=== PATIENT | female | born 1990 | race Caucasian/White ===

== ENCOUNTER → 2018-10-25 08:08 | Outpatient (CLI) | payer BC, SELFPAY | PROVIDERS: Visit Provider Nurse Practitioner Obstetrics & Gynecology | DX: Z34.90 Encounter for supervision of normal pregnancy, unspecified, unspecified trimester (principal) | CPT/HCPCS: 87086; 87186 ==

== ENCOUNTER → 2018-11-01 13:28 | Outpatient (CLI) | payer BC, SELFPAY ==
--- NOTE | 2018-11-01 13:45 | US_ITS ---
US OB transvaginal HISTORY: ITS.REASON: US OB Complete ORDERING PHYSICIAN: Kenneth Breen MD PATIENT AGE: 28 years COMPARISON: None FINDINGS: An intrauterine gestational sac is present with a pole with a crown-rump length of 2.99cm correlating to gestational age of 9w6d. heart tones are present with an FHR of 151 bpm's. Yolk sac is noted. The amnion and chorion have not yet fused. Adnexa: There is a 2.8 cm right corpus luteum cyst showing some internal echoes. IMPRESSION: Live intrauterine gestation at 9 weeks 6 days as described above. Estimated due date by Ultrasound is 05/31/2019
[2018-11-01 14:10] LABS: Basophils % 0.1 % (0.1-2.0); Eosinophils # 0.2 K/mm3 (0.0-0.4); Eosinophils % 1.5 % (0.1-12.0); Hematocrit 36.3 % (37.0-47.0); Hemoglobin 12.7 g/dL (12.2-16.2); Lymphocytes # 1.8 K/mm3 (0.7-4.5); Lymphocytes % 17.7 % (10-50); Mean Corpuscular HGB Conc 34.9 g/dL (31.8-35.4); Mean Corpuscular Hemoglobin 30.8 pg (27.0-31.2); Mean Corpuscular Volume 88.2 fl (81-99); Mean Platelet Volume 7.1 fl (7.4-10.4); Monocytes # 0.4 K/mm3 (0.1-1.0); Neutrophils # 7.8 K/mm3 (1.8-7.8); Neutrophils % 76.7 % (37.0-80.0); Platelet Count 278 K/mm3 (142-424); Red Blood Count 4.12 M/mm3 (4.20-5.40); Red Cell Distribution Width 12.6 % (11.5-17.5); White Blood Count 10.2 K/mm3 (4.8-10.8)
[2018-11-02 18:07] LABS: HIV Screen 4th Generation wRfx Non Reactive (Non Reactive); Hepatitis B Surface Antigen Negative (Negative); Hepatitis C Antibody <0.1 s/co ratio (0.0-0.9); Rapid Plasma Reagin Ab Titer Non Reactive (NonRea<1:1); Rubella Antibodies, IgG 1.46 index (Immune >0.99)
== END ==
PROVIDERS: Visit Provider Nurse Practitioner Obstetrics & Gynecology
DX: O26.841 Uterine size-date discrepancy, first trimester (principal); Z34.90 Encounter for supervision of normal pregnancy, unspecified, unspecified trimester
CPT/HCPCS: 36415; 76817; 85025; 86592; 86703; 86762; 86850; 87340; 87380; G0432

== ENCOUNTER → 2019-01-15 15:02 | Outpatient (CLI) | payer BC, SELFPAY ==
--- NOTE | 2019-01-15 15:09 | US_ITS ---
US OB /maternal detail: INDICATION: ITS.REASON: US OB Complete ORDERING PHYSICIAN: Kenneth Breen MD PATIENT AGE: 28 years TECHNIQUE: ultrasound transabdominal scanning. COMPARISON: No previous relevant studies. FINDINGS: Single viable intrauterine gestation. Breech position. Placenta: Posterior placenta grade 1. There is adequate amount fluid. The MARIE is not available. The cervix appears satisfactory. Closed and measuring 3.0 cm in length. Complete survey performed and was unremarkable on the submitted images as in PACS. No discrete anomalies identified on survey imaging by technologist. Active fetus. Three-vessel cord with satisfactory umbilical cord insertion. 4- chamber heart noted. Survey of brain & ventricles unremarkable. Face and neck survey unremarkable. Diaphragm and chest views unremarkable. Abdomen: Both kidneys noted and unremarkable. Stomach noted and satisfactory. Spine: Survey of the spine satisfactory with no anomalies identified nor imaged. Both arms and legs noted. Amniotic Fluid: Adequate. Maternal adnexa: No significant findings. Measurements: Average ultrasound age 21 weeks 3 days. Gestational Age 20 weeks 4 days. Estimated due date by ultrasound age 1105/25/2019. Estimated weight 440 grams. BPD = 4.95 cm equals 21 weeks OFD = 6.78 cm equals 22 weeks 2 days HC = 18.6 cm equals 21 weeks AC = 17.2 cm equals 22 weeks 2 days FL = 3.5 cm equals 21 weeks 2 days Growth Percentile= Heart Rate = 147 bpm Cerebellum = unremarkable Humerus = unremarkable HC/AC is 1.08. CI is 73%. FL/BPD is 72%. FL/AC is 21%. IMPRESSION: Single intrauterine fetus in breech position with a heart rate of 147 bpm as discussed above.
== END ==
PROVIDERS: PCP Family Medicine; Visit Provider Nurse Practitioner Obstetrics & Gynecology
DX: Z36.0 Encounter for antenatal screening for chromosomal anomalies (principal)
CPT/HCPCS: 76811

== ENCOUNTER → 2019-03-03 16:52 | Outpatient (CLI) | payer BC, SELFPAY | PROVIDERS: Visit Provider Nurse Practitioner Obstetrics & Gynecology | DX: O23.40 Unspecified infection of urinary tract in pregnancy, unspecified trimester (principal); Z3A.27 27 weeks gestation of pregnancy; Z34.90 Encounter for supervision of normal pregnancy, unspecified, unspecified trimester | CPT/HCPCS: 87086; 87088; 87186 ==

== ENCOUNTER → 2019-03-13 08:12 | Outpatient (CLI) | payer BC, SELFPAY ==
[2019-03-13 09:00] LABS: Glucose,Fasting 97 mg/dL (60-105)
[2019-03-13 10:01] LABS: Glucose 1 Hour 202 mg/dL (74-106)
== END ==
PROVIDERS: Visit Provider Nurse Practitioner Obstetrics & Gynecology
DX: Z34.90 Encounter for supervision of normal pregnancy, unspecified, unspecified trimester (principal)
CPT/HCPCS: 36415; 82951

== ENCOUNTER → 2019-03-21 08:14 | Outpatient (CLI) | payer BC, SELFPAY ==
[2019-03-21 08:43] LABS: Glucose,Fasting 93 mg/dL (60-105)
[2019-03-21 10:18] LABS: Glucose 1 Hour 218 mg/dL (74-106)
[2019-03-21 12:12] LABS: Glucose 2 Hour 166 mg/dL (74-106); Glucose 3 Hour 67 mg/dL (74-106)
== END ==
PROVIDERS: Visit Provider Nurse Practitioner Obstetrics & Gynecology
DX: Z34.90 Encounter for supervision of normal pregnancy, unspecified, unspecified trimester (principal)
CPT/HCPCS: 36415; 82951

== ENCOUNTER → 2019-04-15 17:04 | Outpatient (CLI) | payer BC, SELFPAY | PROVIDERS: Visit Provider Nurse Practitioner Obstetrics & Gynecology | DX: O23.40 Unspecified infection of urinary tract in pregnancy, unspecified trimester (principal) | CPT/HCPCS: 87086; 87088; 87186 ==

== ENCOUNTER → 2019-04-29 17:05 | Outpatient (CLI) | payer BC, SELFPAY | PROVIDERS: Visit Provider Nurse Practitioner Obstetrics & Gynecology | DX: Z34.90 Encounter for supervision of normal pregnancy, unspecified, unspecified trimester (principal) | CPT/HCPCS: 86403 ==

== ENCOUNTER 2019-05-16 09:07 | Outpatient (CLI) | payer BC, SELFPAY ==
[2019-05-16 09:21] VITALS: BMI 31.4
[2019-05-16 09:22] VITALS: BP 128/75; PULSE 108; RESP 20; TEMP 36.7; O2SAT 99; BMI 31.4
== END 2019-05-16 10:35 | disposition home or self-care (01) ==
LOC: OBOUT 09:09 → OB 09:09
PROVIDERS: PCP Family Medicine; Visit Provider Nurse Practitioner Obstetrics & Gynecology
DX: O26.893 Other specified pregnancy related conditions, third trimester (principal); Z3A.37 37 weeks gestation of pregnancy
CPT/HCPCS: 59025

== ENCOUNTER 2019-05-20 05:32 | Inpatient (IN) ==
[2019-05-20 06:27] LABS: Basophils % 0.3 % (0.1-2.0); Eosinophils # 0.1 K/mm3 (0.0-0.4); Eosinophils % 1.1 % (0.1-12.0); Hemoglobin 10.1 g/dL (12.2-16.2); Lymphocytes # 2.3 K/mm3 (0.7-4.5); Lymphocytes % 21.4 % (10-50); Mean Corpuscular HGB Conc 33.7 g/dL (31.8-35.4); Mean Corpuscular Volume 86.5 fl (81-99); Mean Platelet Volume 8.2 fl (7.4-10.4); Monocytes # 0.8 K/mm3 (0.1-1.0); Monocytes % 7.6 % (1.7-9.3); Neutrophils # 7.4 K/mm3 (1.8-7.8); Neutrophils % 69.7 % (37.0-80.0); Platelet Count 335 K/mm3 (142-424); Red Blood Count 3.47 M/mm3 (4.20-5.40); Red Cell Distribution Width 14.7 % (11.5-17.5); White Blood Count 10.6 K/mm3 (4.8-10.8)
[2019-05-20 06:28] LABS: Anion Gap 15.6 mEq/L (5-15); Calcium 8.9 mg/dL (8.5-10.1)
[2019-05-20 07:28] LABS: Microscopic, Urine URINE MICROSCOPIC (MICROSCOPIC)
[2019-05-20 07:34] LABS: Appearance,Urine CLEAR (Clear); Bilirubin,Urine Negative (Negative); Blood, Urine 1+ (Negative); Color,Urine YELLOW (Yellow); Glucose,Urine (UA) Negative (Negative); Ketones,Urine 1+ (Negative); Leukocyte Esterase,Urine Negative (Negative); Protein,Urine TRACE (Negative); Specific Gravity, Urine 1.025 (1.005-1.030); Urobilinogen,Urine 0.2 EU/dl (0.2)
[2019-05-20 07:40] LABS: Bacteria,Urine Trace /lpf; Mucus,Urine 1+ /lpf; WBC,Urine Occasional #/hpf (0-3)
[2019-05-20 07:43] LABS: Amphetamine/Metha Screen,Urine Negative ng/mL (<1000); Barbiturates Screen,Urine Negative ng/mL (<200); Benzodiazepines Screen,Urine Negative ng/mL (<200); Cannabinoid Screen,Urine Negative ng/mL (<50); Cocaine Screen,Urine Negative ng/mL (<300); Methadone Screen,Urine Negative ng/mL (<300); Opiate Screen,Urine Negative ng/mL (<300); Phencyclidine Screen,Urine Negative ng/mL (<25)
--- NOTE | 2019-05-20 08:12 | Progress Note ---
[facility] Anesthesia Checklist - Structural Data Admitted From: Inpatient Planned Operative Procedure/s: c/section Consent for Planned Operative Procedure(s) Verified: Yes - Airway Assessment C-Spine Mobility Assessed: Yes TMJ Mobility Assessed: Yes Dentition: Good Dentition - Neurological Assessment Level of Consciousness: Awake, Alert, Appropriate - Anesthesia Plan Anesthesia Risk discussed: Yes Anesthesia Plan: Verified ASA Class: II Anesthesia Type: Spinal [facility] History I have reviewed the patient's past medical history: Yes *Have you ever received a pneumonia vaccine?: No *Have you received a flu vaccine this season?: No Anesthesia experience/problems:: none Other Surgeries: Yes: Amputation: No Fractures: No - *Social History Smoking Status: Never smoker Alcohol Intake: never Substance Use Type: denies use *Occupational Status:: employed *Travel in the last 8 weeks: None Family Hx:: No significant family history Para: 1
--- NOTE | 2019-05-20 08:12 | Operative Note ---
Date of procedure: 05/20/19 Pre-op Diagnosis:: Term , previous section, large for gestational age , gestational diabetes, diet-controlled Post-op Diagnosis:: Term , previous section, large for gestational age infant, gestational diabetes, diet-controlled Procedure performed:: Repeat lower segment transverse section Surgeon:: Kenneth Breen MD Industrial Technician(s):: Deanna Bustamante HYDROELECTRIC MECHANIC:: Franklin Bliss Anesthesia: spinal Estimated blood loss (mL): 600 Clinical Note:: She is a 29-year-old 2 para 1 at 38 weeks +1-day gestational age. She has had a previous large for gestational age infant and was followed along with me at [facility] for her gestational diabetes. She has been diet- controlled. The baby was estimated to be extremely large for gestational age. As result of that it was recommended that we deliver the baby between 38 and 39 weeks. She has had a previous section. As result of this she was offered repeat lower segment transverse section at 38 weeks and 1 day. Operative findings:: She delivered a liveborn male child at 7:38 AM in the morning of May 20, 2019. Baby had Apgars of 8 at 1 minute and 9 at 5 minutes. pH was 7.26. The baby weighed 11 pounds 7 ounces. Ovaries and tubes appeared normal. Operative note:: She was taken to the operating room where spinal anesthesia was found be adequate. She was prepped and draped in normal sterile fashion in the supine position with a leftward tilt. A Singh catheter was in the bladder. A Pfannenstiel skin incision was made with knife then carried through to the underlying layer of fascia with cautery. The fascia was opened in the midline with cautery and extended laterally using Parra scissors. Emily clamps were applied to the superior aspect of the fascial incision which was tented up and the underlying rectus muscles dissected off using cautery. The Emily clamps were then applied to the inferior aspect of the fascial incision which in a similar fashion was tented up and the underlying rectus muscles dissected off using cautery. The rectus muscles were then in the midline, the peritoneum identified, and entered sharply with Metzenbaum scissors. This incision was then extended superiorly and inferiorly with cautery. We had good visualization of the bladder inferiorly. The bladder peritoneum was then opened in the midline and extended laterally using Metzenbaum scissors. A bladder flap was created digitally. Transverse incision was made through the uterine muscle to the amnion. This incision was then extended laterally using fingers traction. The amnion was entered sharply with knife. There was clear amniotic fluid. The infant's head was then delivered atraumatically. This was followed by the anterior shoulder and the rest of the 's body atraumatically. The oropharynx and nasopharynx were bulb suctioned. The was then handed off to Dr. Knowles. Who assigned Apgars of 8 at 1 minute and 9 at 5 minutes. We then obtained cord blood as well as cord pH. The pH was 7.26. Using gentle traction on the cord and countertraction on the fundus I was able to easily deliver the placenta intact. It had a normal three-vessel cord. The uterus was then cleared of clots and debris . The uterus was then exteriorized from the abdominal cavity. The uterine incision was then closed using running 0 Vicryl suture in a locked fashion. A second layer of the same suture was used to imbricate the first layer. The bladder peritoneum was then closed using running 2-0 Vicryl suture in a locked fashion. The gutters and cul-de-sac were then cleared of clots and debris . Once again hemostasis was assured. After once again assuring hemostasis the uterus was then returned to the abdominal cavity. The peritoneum was grasped with Concepción clamps and closed using running 2-0 Vicryl suture. The rectus muscles were then reapproximated using running 0 Vicryl suture. The fascia was closed using running #1 Vicryl suture. The subcutaneous tissues were then irrigated with warm water followed by closure Carlita's fascia using running 2-0 Monocryl suture. The skin was closed with denise. I then cleaned the skin with Hibiclens. Sterile dressings were applied. She tolerated the procedure well and was taken to the recovery room in excellent condition. All sponges, instrument and needle counts were correct. Estimated blood loss was approximately 600 mL. Condition: stable Disposition: PACU Specimens:: None Complications:: None
--- NOTE | 2019-05-20 08:13 | Progress Note ---
[facility] Anesthesia Record Part I Intake, IV Amount: 1,500 Estimated blood loss (mL): 600 Urine output (mL): 200 Blood Pressure: 128/70 SaO2: 98 Pulse Rate: 89 Respiratory Rate: 12 Temperature: 97.4 F Patient is:: Awake, Stable Stable to PACU at:: 08:10
--- NOTE | 2019-05-20 08:14 | Progress Note ---
[facility] Anesthesia Record Part II Discharge Time: 08:40 Destination: Obstetric PACU nurse assessment reviewed?: Yes Patient Condition:: Good Anesthesia Complications:: None Swallowing reflex intact?: Yes Cyanosis?: No
--- NOTE | 2019-05-20 08:50 | Pharmacy Consult Notes ---
[facility] Pharmacy VTE Monitoring - Patient Demographics Admission date: 05/20/19 Report Date: 05/20/19 Time: 08:50 Allergies/Adverse Reactions: Patient Allergies No Known Allergies Allergy (Verified 05/19/19 09:25) Height: 1.7 m Weight: 91.172 kg - VTE Risk Labs: VTE Related Lab Results Hgb 10.1 g/dL (12.2-16.2) L 05/20/19 06:00 Hct 30.0 % (37.0-47.0) L 05/20/19 06:00 Plt Count 335 K/mm3 (142-424) 05/20/19 06:00 BUN 7 mg/dL (7-18) 05/20/19 06:00 Creatinine 0.59 mg/dL (0.55-1.02) 05/20/19 06:00 Estimated Creat Clear 201 mL/min (50-200) 05/20/19 06:00 Clinical Trial Participant: No - Prophylaxis VTE Prophylaxis Ordered?: Yes Types of VTE Prophylaxis: IPCS Knee High (POST OP)
[2019-05-21 06:47] LABS: Hematocrit 28.8 % (37.0-47.0); Hemoglobin 9.2 g/dL (12.2-16.2)
--- NOTE | 2019-05-21 08:37 | Progress Note ---
Internal Medicine - PN: Subj *Date: 05/21/19 *Time: 08:34 Interval history: She continues to do very well. She is eating and drinking and ambulating. She is breast-feeding. Exam Vital signs and Labs for Last 24 Hours: Temp Pulse Resp BP Pulse Ox 98.6 F 79 18 113/54 L 98 05/21/19 04:13 05/21/19 04:13 05/21/19 04:13 05/21/19 04:13 05/21/19 04:13 Laboratory Results - last 24 hr 05/20/19 07:27: Urine Color Yellow, Urine Appearance Clear, Urine pH 6.0, Ur Specific Steedman 1.025, Urine Protein Trace, Urine Glucose (UA) Negative, Urine Ketones 1+, Urine Blood 1+, Urine Nitrate Negative, Urine Bilirubin Negative, Urine Urobilinogen 0.2, Ur Leukocyte Esterase Negative, Urine RBC Occasional, Urine WBC None, Ur Squamous Epith Cells 5-10, Urine Bacteria Trace 05/21/19 06:04: Hgb 9.2 L, Hct 28.8 L I & O for Last 24 hours: Intake & Output 05/18/19 05/19/19 05/20/19 05/21/19 11:59 11:59 11:59 11:59 Intake Total 1500 / 1500 Output Total 2250 / 2250 Balance -750 / -750 Weight 201 lb - Constitutional no acute distress, cooperative Assessment and Plan (1) Previous section Current visit: Yes Status: Acute Category: Surgical Code(s): Z98.891 - History of uterine scar from previous surgery (2) Delivery by section of full-term infant Current visit: Yes Status: Acute Category: Medical Code(s): O82 - Encounter for delivery without indication (3) Gestational diabetes Current visit: Yes Status: Acute Category: Medical Code(s): O24.419 - Gestational diabetes mellitus in , unspecified control - Assessment and plan all Dx Assessment and Plan for all problems:: She is doing well. Her pain is reasonably well controlled. We will plan to send her home in 48 hours.
--- OUTSIDE RECORDS SUMMARY | 2019-05-21 14:30 | External Medical Summary | Continuity of Care Document ---
:1990 Author Organization [facility] Address [address] [place] [address] Phone Care Team Providers Name Role Phone Jamshid Attending Provider Dario Primary Care Provider Allergies, Adverse Reactions, Alerts No known allergies. Medications Medication Status Dose Units Route Sig Qty Days Start Date End Ins tructions Date Blood-Glucose Active 0 Route .MEDSUPP 23 March As directed Meter LY 2018 4:49pm Blood Sugar Active 0 Route .MEDSUPP 01 April As directed Diagnostic 2018 4:50pm Lancets Active 0 Route .MEDSUPP March As d irected LY 2018 4:50pm Vit Active 1 TAB Oral Daily April Calc,Iron,Fol 2018 ic 6:06am Active 325 MG Oral Daily May 20, 2019 6:06am Problems Active Problems Medical Problem Onset Date Status Delivery by section of full-term infant Active Active Gestational diabetes Active Strep throat Active Previous section Active Procedures Procedure Date Performed Status Group B Streptococcus Screen (RAFY) April 29, 2019 compl eted Urine Culture March 03, 2019 completed Urine Culture April 15, 2019 completed Relevant Diagnostic Tests and/or Laboratory Data Laboratory Results Test Date/Time Result Interpretation Reference Result Perfo rming Range Comment Site Urine Color February Dark Yellow 2018 4:26pm Urine Color February Alyssia 2018 4:07pm Urine Color March Dark Yellow 2018 4:13pm Urine Color March Yellow 2018 4:46pm Urine Color October Yellow 2018 4:13pm Urine Color October Alyssia 2018 4:16pm Urine Color October Yellow 2018 11:19am Urine Color October Yellow 2018 9:26am Urine Bajandas Slightly Appearance 2018 Cloudy 4:26pm Urine Bajandas Cloudy Appearance 2018 4:07pm Urine Helene Slightly Appearance 2018 Cloudy 4:13pm Urine Helene Clear Appearance 2018 4:46pm Urine October Clear Appearance 2018 4:13pm Urine October Clear Appearance 2018 4:16pm Urine October Slightly Appearance 2018 Cloudy 11:19am Urine October Clear Appearance 2018 9:26am Urine Glucose Bajandas 1+ (UA) 2018 4:26pm Urine Glucose Bajandas 1+ (UA) 2018 4:07pm Urine Glucose Helene 1+ (UA) 2018 4:13pm Urine Glucose Helene Negative (UA) 2018 4:46pm Urine Glucose October 1+ 100mg/dl (UA) 2018 4:13pm Urine Glucose October Negative (UA) 2018 4:16pm Urine Glucose October 1+ (UA) 2018 11:19am Urine Glucose October Negative (UA) 2018 9:26am Urine Bajandas negative Bilirubin 2018 4:26pm Urine Bajandas negative Bilirubin 2018 4:07pm Urine Helene negative Bilirubin 2018 4:13pm Urine Helene small Bilirubin 2018 4:46pm Urine October negative Bilirubin 2018 4:13pm Urine October negative Bilirubin 2018 4:16pm Urine October negative Bilirubin 2018 11:19am Urine October negative Bilirubin 2018 9:26am Urine Ketones Bajandas Negative mg/dL 2018 4:26pm Urine Ketones Bajandas Negative mg/dL 2018 4:07pm Urine Ketones Helene Negative mg/dL 2018 4:13pm Urine Ketones Helene Small 15 mg/dL 2018 4:46pm Urine Ketones October Trace 5 mg/dL 2018 4:13pm Urine Ketones October Moderate 40 2018 mg/dL 4:16pm Urine Ketones October Negative mg/dL 2018 11:19am Urine Ketones October Negative mg/dL 2018 9:26am Urine Protein March 21+ 2018 4:26pm Urine Protein March 21+ 2018 4:07pm Urine Protein April 212018 4:13pm Urine Protein March 100++ 2018 4:46pm Urine Blood April nonhemolyzed 2018 trace 4:13pm Urine Protein May 212018 4:16pm Urine Protein May 212018 11:19am Urine Protein May 212018 9:26am Urine pH February 6.0 2018 4:26pm Urine pH February 6.0 2018 4:07pm Urine pH March 6.0 2018 4:13pm Urine pH March 6.0 2018 4:46pm Urine Specific April 1.025 Delancey 2018 4:13pm Urine pH April 6.0 2018 4:16pm Urine pH April 6.0 2018 11:19am Urine pH April 6.5 2018 9:26am Urine Blood February moderate 2018 4:26pm Urine Blood February nonhemolyzed 2018 trace 4:07pm Urine Blood March nonhemolyzed 2018 trace 4:13pm Urine Blood March small 2018 4:46pm Urine October 0.2 Urobilinogen 2018 Dipstick 4:13pm Urine Blood October nonhemolyzed 2018 trace 4:16pm Urine Blood April small 2018 11:19am Urine Blood April small 2018 9:26am Urine Specific February 1.025 Delancey 2018 4:26pm Urine Specific February 1.030 Delancey 2018 4:07pm Urine Specific Helene 1.030 Delancey 2018 4:13pm Urine Specific Helene 1.030 Delancey 2018 4:46pm Urine Nitrate October Negative 2018 4:13pm Urine Specific October 1.025 Delancey 2018 4:16pm Urine Specific October 1.015 Delancey 2018 11:19am Urine Specific October 1.025 Delancey 2018 9:26am Urine Bajandas 0.2 Urobilinogen 2018 Dipstick 4:26pm Urine Bajandas 0.2 Urobilinogen 2018 Dipstick 4:07pm Urine Helene 0.2 Urobilinogen 2018 Dipstick 4:13pm Urine Helene 1 Urobilinogen 2018 Dipstick 4:46pm Urine October Negative Leukocyte 2018 Esterase 4:13pm Urine October 0.2 Urobilinogen 2018 Dipstick 4:16pm Urine October 1 Urobilinogen 2018 Dipstick 11:19am Urine October 1 Urobilinogen 2018 Dipstick 9:26am Urine Nitrate February Positive 2018 4:26pm Urine Nitrate February Negative 2018 4:07pm Urine Nitrate March Negative 2018 4:13pm Urine Nitrate Helene Positive 2018 4:46pm Urine Nitrate October Negative 2018 4:16pm Urine Nitrate October Negative 2018 11:19am Urine Nitrate October Negative 2018 9:26am Urine February Negative Leukocyte 2018 Esterase 4:26pm Urine February Negative Leukocyte 2018 Esterase 4:07pm Urine Helene Negative Leukocyte 2018 Esterase 4:13pm Urine Helene Large Leukocyte 2018 Esterase 4:46pm Urine October Negative Leukocyte 2018 Esterase 4:16pm Urine October Negative Leukocyte 2018 Esterase 11:19am Urine October Negative Leukocyte 2018 Esterase 9:26am Fasting Bajandas 97 mg/dL 60-105 [facility], [address] [place] [address] 36 E Glucose 2018 8:13am [place] [address] Fasting Bajandas 93 mg/dL 60-105 [facility], [address] [place] [address] 36 E Glucose 2018 8:15am [place] [address] Glucose 1 Hour Bajandas 202 mg/dL 74-106 [facility], [address] [place] [address] 36 E 2018 8:13am [place] [address] Glucose 1 Hour Bajandas 218 mg/dL 74-106 [facility], [address] [place] [address] 36 E 2018 8:15am [place] [address] Glucose 2 Hour Bajandas 166 mg/dL 74-106 [facility], [address] [place] [address] 36 E 2018 8:15am [place] [address] Glucose 3 Hour Bajandas 67 mg/dL 74-106 [facility], [address] [place] [address] 36 E 2018 8:15am [place] [address] Urine Fasting Bajandas Negative mg/dL [facility], [address] [place] [address] E Glucose 2018 8:13am [place]REW [address] Urine Fasting February Negative mg/dL [facility], [address] [place] [address] E Glucose 2018 8:15am [place] [address] Urine Glucose February 3+ mg/dL [facility], [address] [place] [address] E 1 Hour 2018 8:13am [place] [address] Urine Glucose February 3+ mg/dL [place] [address] E 1 Hour 2018 8:15am [place] [address] Urine Glucose February 3+ mg/dL [place] [address] E 2 Hour 2018 8:15am [place] [address] Urine Glucose February 2+ mg/dL [place] [address] E 3 Hour 2018 8:15am [place] [address] Microbiology Results Procedure Source Result Collection Result Result Performin g Date/Time Date/Time Comment Site Urine Culture Urine,Libertad Escherichia March 03February [place] [address] E n Catch coli 2018 4:11pm 2018 9:30am [place] [address] Urine Culture Urine,Libertad Escherichia March [place] [address] E n Catch coli 2018 4:29pm 6:53am [place] [address] Group B Vaginal Negative for April 29April [place] [address] E Streptococcus Group B 2018 4:12pm 2018 Screen (RAFY) Streptococcus. 7:45[place] [address] Advance Directives Advance Directive Response Recorded Date/Time Does the patient have an advanced directive on No April 29, 2019 4:59pm file? Living Will No April 29, 2019 4: 59pm Does the patient have an advanced directive on No March 18, 2019 5:55pm file? Living Will No March 18, 2019 5: 55pm Chief Complaint and Reason for Visit Chief Complaint LABWORK LAB WORK LAB WORK OFFICE DROP OFF OFFICE DROP OFF NST repeat c section Reason for Visit Delivery by section of full-term infant Gestational diabetes Previous section Encounters Encounter Location(s) Arrival/Admit Date Discharge/Depart Date Provider(s) Departed [facility] Physician March 03, 2019 March 03, 2019 Asa Breen , Physician/[facility] 4:00pm 4:31pm [facility] Breen Visit Registered [facility] Physician March 03, 2019 Kenneth nunez , Clinical Group-Lab Drop 4:52pm MD Off to [facility] Registered [facility] Physician March 13, 2019 Kenneth nunez , Clinical Group-Laboratory 8:12am MD Departed [facility] Physician March 17, 2019 March 17, 2019 Asa Breen , Physician/[facility] 3:44pm 4:20pm [facility] Breen Visit Registered [facility] Physician March 21, 2019 Kenneth nunez Clinical Group-Laboratory 8:14am Departed [facility] Physician March 31, March 31, 2019 Kenneth Breen , Physician/[facility] 2018 4:09pm 4:38pm [facility] Breen Visit Departed [facility] Physician April 15, April 15, 2019 Barclay , Physician/[facility] 2018 4:05pm 4:51pm [facility] Breen Visit Registered [facility] Physician April 15, Kenneth schneider Clinical Group-Lab Drop 2018 5:04pm MD Off to [facility] Departed [facility] Physician April 29, 2019 April 29, 2019 Asa Breen , Physician[facility] 4:06pm 4:47pm [facility] Breen Visit Registered [facility] Physician April 29, 2019 Kenneth nunez , Clinical Group-Lab Drop 5:05pm MD Off to [facility] Departed [facility] Physician May 12, 2019 May 12, 2019 Lang , Physician/[facility] 4:00pm 5:20pm [facility] Health Jamshid Visit Departed [facility] Physician May 15, 2019 May 15, 2019 Lang , [facility]ician[facility] 10:23am 11:54am [facility] Jamshid Visit Registered [facility] Physician May 16, 2019 May 16, 2019 Lang , Inpatient Group-Women[facility] 9:07am 10:35am MD Rubén Breen Departed [facility] Physician May 19, 2019 May 19, 2019 Lang , Physician[facility] 8:49am 10:14am MD Tariq Visit Registered [facility] Physician May 20, 2019 Kenneth aranda , [facility]patient [facility] 5:32am MD Rubén Breen Registered [facility] Physician May 21, 2019 Kenneth aranda , Inpatient Group- 2:27pm Recent Diagnosis Onset Date Delivery by section of full-term Gestational diabetes Previous section Assessments Diagnosis Onset Date Resolution Status Delivery by section of full-term infant acute Gestational diabetes acute Previous section acute Functional Status Observation Response Date Recorded Functional status ambulatory May 12, 2019 5 :37pm Functional status ambulatory April 29, 2019 4: 59pm Functional status ambulatory April 15, 2019 4:56pm Functional status ambulatory March 31, 2019 4:45pm Functional status ambulatory March 03, 2019 4: 41pm Functional status ambulatory May 19, 2019 1 1:37am Functional status ambulatory May 16, 2019 9 :22am Functional status ambulatory March 18, 2019 5: 55pm Goals Acute Goals Nursing Diagnosis: Knowledge Deficit D isease/Condition Goal(s): Education of di sease process Instruction(s): Follow provider p rod/instructions (See attached discharge education) Follow/up with primary care provider as instructed in discharge packet Nursing Diagnosis: Knowledge Deficit D isease/Condition Goal(s): Education of di sease process Instruction(s): Follow provider p rod/instructions (See attached discharge education) Follow/up with primary care provider as instructed in discharge packet Mental Status No Mental Status Information Available Medical Equipment No Medical Equipment Information available Insurance Providers Guarantor Jadenmarquita Marsha Bennett Address [address] [facility] [address] Contact Info. Home Phone: Payer Policy Id Coverage Id Subscriber's Subscriber Id Effective E xpiration Name Date Date Alexandrea Rodriguez [id number] Mekhi Larson [id number] Card [id number] 01 Program Self Pay Self N/A Plan of Treatment Today we performed a non-stress test. The nonstress test was reactive. We signed her consents for surgery today. We will see her back again in 3 days. She is doing well with her gestational diabetes. She has an appointment next week at [facility]. I will see her back in 2 weeks time. We did swabs for group B strep today. She is doing well. Her sugars are doing much better. She is just diet- controlled gestational diabetes. See her back again in 2 weeks. She has gestational diabetes and will get a consult at [facility]. We have called her in a glucometer, lancets and strips. We will see her back in 2 weeks time. She is doing well. We will start some Macrobid for a UTI. We will see her back in 2 weeks. She will get a sugar test as well. She did have 1000 of glucose in her urine. He has a history of an 11 pound baby. She has gestational diabetes with an extremely large fetus. We have had her seen at [facility] for her gestational diabetes and they recommended delivery between 38 and 39 weeks. Tomorrow she is 38 and 1 and we have her scheduled for a repeat section. Today her nonstress test is reactive. There are no contractions. We performed a nonstress test and it was reactive. She had one contraction. We will see her again in about 4 days time for another nonstress test. We have scheduled her for a repeat section at 38+ weeks. We will see her back in 2 weeks time. She will get a 3-hour test. Future Tests Future scheduled test information is unavailable Pending Tests Pending diagnostic test information is unavailable Future Visits Future appointment information is unavailable Referrals to Other Providers Reason for Referral Start Provider Provider Contact Provider Address Referral Date Information Admission to [facility] May [address] Future Procedures Future procedure information is unavailable Future Medications Future medication information is unavailable Patient Instructions Diet Gestational Diabetes Diet Gestational Diabetes Diet Diet How to Do Kick Counts Antepartum Care Gestational Diabetes Diet Depression DI for Surgical Site Infection [facility] Post Discharge Instructions Social History Assigned Sex Female Vital Signs Vital Reading Result Reference Range Collection Date/ Time Height 167.64 cm March 03 4:19pm Weight 87.54 kg March 03 4:19pm BP Systolic 114 mm[Hg] 110-140 March 03 4:19pm BP Diastolic 70 mm[Hg] 60-90 March 03 4:19pm BMI (Body Mass Index) 31.1 kg/m2 February 4:19pm Height 167.64 cm March 17 3:59pm Weight 89.81 kg Bajandas 26th, 201 9 3:59pm BP Systolic 118 mm[Hg] 110-140 March 17 9 3:59pm BP Diastolic 76 mm[Hg] 60-90 March 17 9 3:59pm BMI (Body Mass Index) 31.9 kg/m2 February 3:59pm Height 167.64 cm March 31, 2 019 4:18pm Weight 90.43 kg March 31, 2 019 4:18pm BP Systolic 102 mm[Hg] 110-140 March 31, 2 019 4:18pm BP Diastolic 60 mm[Hg] 60-90 March 31, 2 019 4:18pm BMI (Body Mass Index) 32.1 kg/m2 March 31, 2019 4:18pm Height 167.64 cm April 15, 2019 4:33pm Weight 89.92 kg April 15, 2019 4:33pm BP Systolic 110 mm[Hg] 110-140 April 15, 2019 4:33pm BP Diastolic 56 mm[Hg] 60-90 April 15, 2019 4:33pm BMI (Body Mass Index) 32.0 kg/m2 April 15, 2019 4:33pm Height 167.64 cm April 29 4:21pm Weight 90.26 kg April 29 4:21pm BP Systolic 118 mm[Hg] 110-140 April 29 9 4:21pm BP Diastolic 76 mm[Hg] 60-90 April 29 9 4:21pm BMI (Body Mass Index) 32.1 kg/m2 April 4:21pm Height 167.64 cm May 12 4:49pm Weight 91.62 kg May 12 4:49pm BP Systolic 118 mm[Hg] 110-140 May 12 4:49pm BP Diastolic 62 mm[Hg] 60-90 May 12 4:49pm BMI (Body Mass Index) 32.5 kg/m2 May 122018 4:49pm Height 167.64 cm May 15, 11:17am Weight 91.34 kg May 15, 11:17am BP Systolic 120 mm[Hg] 110-140 May 15, 11:17am BP Diastolic 60 mm[Hg] 60-90 May 15, 11:17am BMI (Body Mass Index) 32.5 kg/m2 May 152018 11:17am Height 170.18 cm May 16, 9:22am Weight 91.17 kg May 16, 9:22am Body Temperature 98.0 [degF] 97.6-99.6 May 16, 2 019 9:22am Heart Rate 108 /min 60-May 16, 9:22am Respiratory rate 20 /min -May 16, 2 019 9:22am Oxygen saturation by Pulse 99 % 95-100 Octob er 2018 9:22am oximetry BP Systolic 128 mm[Hg] 110-140 May 16, 9:22am BP Diastolic 75 mm[Hg] 60-90 May 16, 9:22am BMI (Body Mass Index) 31.4 kg/m2 May 162018 9:22am Height 170.18 cm May 19, 9:21am Weight 91.17 kg May 19, 9:21am BP Systolic 122 mm[Hg] 110-140 May 19, 9:21am BP Diastolic 68 mm[Hg] 60-90 May 19, 9:21am BMI (Body Mass Index) 31.4 kg/m2 May 192018 9:21am Height 170.18 cm May 20, 5:53am Weight 91.17 kg May 20, 5:53am Body Temperature 98.6 [degF] 97.6-99.6 May 21, 2 019 4:13am Heart Rate 79 /min -May 21, 4:13am Respiratory rate 18 /min 07-15May 21, 2 019 4:13am Oxygen saturation by Pulse 98 % 95-100 Octob er 2018 4:13am oximetry BP Systolic 113 mm[Hg] 110-140 May 21, 4:13am BP Diastolic 54 mm[Hg] 60-90 May 21, 4:13am BMI (Body Mass Index) 31.4 kg/m2 May 202018 5:53am
--- NOTE | 2019-05-22 12:00 | Progress Note ---
Internal Medicine - PN: Subj *Date: 05/22/19 *Time: 11:59 Interval history: She continues to do well. She is eating and drinking and ambulating. Her pain is well controlled. She is breast-feeding. Exam Vital signs and Labs for Last 24 Hours: Temp Pulse Resp BP Pulse Ox 98.0 F 82 18 132/74 100 05/21/19 20:05 05/21/19 20:05 05/21/19 20:05 05/21/19 20:05 05/21/19 20:05 I & O for Last 24 hours: Intake & Output 05/19/19 05/20/19 05/21/19 05/22/19 11:59 11:59 11:59 11:59 Intake Total 1500 / 1500 Output Total 2250 / 2250 Balance -750 / -750 Weight 201 lb - Constitutional no acute distress Assessment and Plan (1) Previous section Current visit: Yes Status: Acute Category: Surgical Code(s): Z98.891 - History of uterine scar from previous surgery (2) Delivery by section of full-term infant Current visit: Yes Status: Acute Category: Medical Code(s): O82 - Encounter for delivery without indication (3) Gestational diabetes Current visit: Yes Status: Acute Category: Medical Code(s): O24.419 - Gestational diabetes mellitus in , unspecified control - Assessment and plan all Dx Assessment and Plan for all problems:: She continues to do very well. We will plan on sending her home tomorrow.
[2019-05-23 06:25] VITALS: BP 111/70
--- NOTE | 2019-05-23 10:35 | Discharge Summary ---
General - General Admission date:: 05/20/19 Discharge date: 05/23/19 HPI HPI: She is a 29-year-old 4 now para 2 aborta 2 who was 38+ weeks gestational age. She has been followed at [facility] for her gestational diabetes. She also had an extremely large for gestational age . She had a previous section and was offered repeat lower segment transverse section at term. Hospital Course Hospital Course: On May 20, 2019 she underwent a repeat lower segment transverse section. She delivered a liveborn male child at 7:38 AM. The baby weighed 11 pounds 7 ounces. He had Apgars of 8 at 1 minute and 9 at 5 minutes. pH was 7.26. She has done well and has remained afebrile throughout her hospitalization. She is eating and drinking and ambulating. She is breast- feeding. Her lochia is normal. She has O+ blood, she is rubella immune and was group B streptococcus negative. 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 She is discharged home to follow-up with me in approximately 2 weeks time. She will continue with her vitamins and iron. She was given a prescription for Percocet 5/325 number 30 tablets. She will also take ibuprofen. She was given the usual instructions with respect to limiting her activity, driving and sexual activity. Her condition on discharge is stable. Rhogam Administration: Not Indicated Objective Vital signs: Temp Pulse Resp BP Pulse Ox 98.1 F 64 18 111/70 98 05/23/19 04:00 05/23/19 04:00 05/23/19 04:00 05/23/19 04:00 05/23/19 04:00 no acute distress - *Routine Abdominal Exam Present: soft, surgical scars Comments: Her incision is clean and dry. DS: Diagnosis - Discharge Diagnosis (1) Previous section Status: Acute (2) Delivery by section of full-term Status: Acute (3) Gestational diabetes Status: Acute Discharge Plan - Patient Discharge Instructions ACTIVITY: No heavy lifting DIET: continue same diet Additional Instructions: NO HEAVY LIFTING. NO STRENUOUS ACTIVITY. NOTHING IN THE VAGINA FOR 6 WEEKS. NO DRIVING WHILE ON PRESCRIPTION PAIN MEDICATION. Patient Instructions: Depression, DI for Surgical Site Infection, [facility] Post Discharge Instructions - Follow up Plan Follow up with: Kenneth Breen MD [Staff Physician] - 06/04/19 10:30 am Disposition: Home, Self-Custodial Medications: Home Medications Medication Instructions Recorded Confirmed Type blood sugar diagnostic strips See Dose Instructions .ROUTE 03/31/19 05/19/19 Rx .MEDSUPPLY #10 each blood-glucose meter See Dose Instructions .ROUTE 03/31/19 05/19/19 Rx .MEDSUPPLY #1 each lancets See Dose Instructions .ROUTE 03/31/19 05/19/19 Rx .MEDSUPPLY #50 each Vit Calc,Iron,Folic [Kpn] 1 tab PO DAILY 05/20/19 05/20/19 History ferrous sulfate 325 mg (65 mg 325 mg PO DAILY 05/20/19 05/20/19 History iron) tablet,delayed release Oxycodone HCl/Acetaminophen 1 - 2 tab PO Q4-6H PRN #30 tab 05/23/19 Rx [Percocet 5/325mg tablet] Prescriptions/Medication Reconciliation: New Oxycodone HCl/Acetaminophen [Percocet 5/325mg tablet] 1 - 2 tab PO Q4-6H PRN #30 tab PRN Reason: Severe Pain Continued blood sugar diagnostic strips See Dose Instructions .ROUTE .MEDSUPPLY #10 each blood-glucose meter See Dose Instructions .ROUTE .MEDSUPPLY #1 each lancets See Dose Instructions .ROUTE .MEDSUPPLY #50 each Vit Calc,Iron,Folic [Kpn] 1 tab PO DAILY No Action ferrous sulfate 325 mg (65 mg iron) tablet,delayed release 325 mg PO DAILY - Problem Reconciliation Problems Reviewed?: Yes
== END 2019-05-23 17:59 | disposition home or self-care (01) | DRG 788 ==
LOC: OB 05:32
PROVIDERS: ADMIT Nurse Practitioner Obstetrics & Gynecology; ATTEND Nurse Practitioner Obstetrics & Gynecology

== ENCOUNTER → 2019-06-04 17:24 | Outpatient (CLI) | payer BC, SELFPAY | PROVIDERS: Visit Provider Nurse Practitioner Obstetrics & Gynecology | DX: N39.0 Urinary tract infection, site not specified (principal) | CPT/HCPCS: 87086; 87088; 87186 ==

== ENCOUNTER → 2020-04-09 15:14 | Outpatient (CLI) | payer BC, SELFPAY ==
--- NOTE | 2020-04-09 15:14 | US_ITS ---
PROCEDURE: US OB <= 14 WEEKS FETUS CLINICAL INDICATION: for dates Ob ultrasound for dates COMPARISON: US OBFEMAT US OB /maternal detail from 01/15/2019 FINDINGS: An intrauterine gestational sac is present with a pole with a crown-rump length of 4.94cm correlating to gestational age of 11weeks 5days. heart tones are present with an FHR of 167bpm. Yolk sac is noted. There is a 2.8 cm left ovarian cyst IMPRESSION: Live IUP at 11 weeks 5 days Estimated due date by Ultrasound is 10/24/2020 Dictated by: Valeriy Cox MD 04/09/2020 16:56 Valeriy Cox MD in OV 04/09/2020 16:56
== END ==
PROVIDERS: PCP Family Medicine; Visit Provider Nurse Practitioner Obstetrics & Gynecology
DX: Z34.90 Encounter for supervision of normal pregnancy, unspecified, unspecified trimester (principal)
CPT/HCPCS: 76801

== ENCOUNTER → 2020-04-30 11:46 | Outpatient (CLI) | payer BC, SELFPAY ==
[2020-04-30 12:51] LABS: Basophils % 0.3 % (0.1-2.0); Eosinophils # 0.1 K/mm3 (0.0-0.4); Hematocrit 37.9 % (37.0-47.0); Hemoglobin 12.7 g/dL (12.2-16.2); Lymphocytes # 1.7 K/mm3 (0.7-4.5); Lymphocytes % 18.1 % (10-50); Mean Corpuscular HGB Conc 33.4 g/dL (31.8-35.4); Mean Corpuscular Hemoglobin 30.4 pg (27.0-31.2); Mean Corpuscular Volume 91.2 fl (81-99); Mean Platelet Volume 7.2 fl (7.4-10.4); Monocytes # 0.5 K/mm3 (0.1-1.0); Monocytes % 5.1 % (1.7-9.3); Neutrophils # 6.9 K/mm3 (1.8-7.8); Neutrophils % 75.5 % (37.0-80.0); Platelet Count 253 K/mm3 (142-424); Red Blood Count 4.16 M/mm3 (4.20-5.40); Red Cell Distribution Width 13.2 % (11.5-17.5); White Blood Count 9.2 K/mm3 (4.8-10.8)
[2020-05-01 13:18] LABS: HIV Screen 4th Generation wRfx Non Reactive (Non Reactive); Hepatitis B Surface Antigen Negative (Negative); Hepatitis C Antibody <0.1 s/co ratio (0.0-0.9)
[2020-05-01 13:19] LABS: Rapid Plasma Reagin Ab Titer Non Reactive (NonRea<1:1); Rubella Antibodies, IgG 1.19 index (Immune >0.99)
== END ==
PROVIDERS: Visit Provider Nurse Practitioner Obstetrics & Gynecology
DX: Z34.90 Encounter for supervision of normal pregnancy, unspecified, unspecified trimester (principal)
CPT/HCPCS: 36415; 85025; 86592; 86703; 86762; 86850; 87340; 87380; G0432

== ENCOUNTER → 2020-06-07 14:58 | Outpatient (CLI) | payer BC, SELFPAY ==
--- NOTE | 2020-06-07 14:58 | US_ITS ---
PROCEDURE: US OB /MATERNAL DETAIL CLINICAL INDICATION: 20week gestation Anatomy evaluation COMPARISON: US US OB <= 14 WEEKS FETUS from 04/09/2020 FINDINGS: There is a single live fetus which is in cephalic presentation. The cervix is closed measuring 5 cm in length. The placenta is anterior and grade 1. Complete survey performed and was unremarkable on the submitted images as in PACS. No discrete anomalies identified on survey imaging by technologist. Active fetus. Three-vessel cord with satisfactory umbilical cord insertion. 4- chamber heart noted. Survey of brain & ventricles Unremarkable. Face and neck survey unremarkable. Diaphragm and chest views unremarkable. Abdomen: Both kidneys are identified. There is bilateral renal pelvocaliectasis with the renal pelves measuring 4 mm each. Stomach noted and satisfactory. Spine: Survey of the spine satisfactory with no anomalies identified nor imaged. Both arms and legs noted. Amniotic Fluid: Adequate. Maternal adnexa: No significant findings. Measurements: Average ultrasound age 20weeks 2days. Gestational Age 20weeks 1day Estimated due date by ultrasound age 0410/23/2020. Estimated weight 344g BPD = 20weeks 2days OFD = 20weeks 3days HC = 19weeks 4days AC = 20weeks 6days FL = 20weeks 0days Growth Percentile= 54% Heart Rate = 149bpm Cerebellum = 1.91cm; 19weeks 5days Humerus = 3.15cm; 20weeks 4days HC/AC is 1.09 (1.09-1.26) CI is 79% (70-86%) FL/BPD is 68% FL/AC is 21% IMPRESSION: Live IUP with an average ultrasound age 20 weeks and 2 days. All parameters correlate. There is bilateral renal pelvocaliectasis. Consider follow-up to confirm stability or resolution. Normal amniotic fluid volume. Anterior grade 1 placenta. Please see above for detailed description Dictated by: Valeriy Cox MD 06/08/2020 13:00 Valeriy Cox MD in [place] 06/08/2020 13:00
== END ==
PROVIDERS: PCP Family Medicine; Visit Provider Nurse Practitioner Obstetrics & Gynecology
DX: Z34.90 Encounter for supervision of normal pregnancy, unspecified, unspecified trimester (principal); Z3A.20 20 weeks gestation of pregnancy
CPT/HCPCS: 76811

== ENCOUNTER → 2020-06-25 16:05 | Outpatient (CLI) | payer BC, SELFPAY ==
[2020-06-25 16:06] LABS: Microscopic, Urine URINE MICROSCOPIC (MICROSCOPIC)
[2020-06-25 16:43] LABS: Appearance,Urine CLOUDY (Clear); Bilirubin,Urine Negative (Negative); Blood, Urine 1+ (Negative); Color,Urine YELLOW (Yellow); Glucose,Urine (UA) Negative (Negative); Ketones,Urine Negative (Negative); Leukocyte Esterase,Urine 1+ (Negative); Nitrate,Urine POSITIVE (Negative); Protein,Urine Negative (Negative); Specific Gravity, Urine 1.025 (1.005-1.030); Urobilinogen,Urine 0.2 EU/dl (0.2)
[2020-06-25 17:43] LABS: Bacteria,Urine 4+ /lpf; Squamous Epithelial Cell,Urine Occasional #/hpf (0-5); WBC,Urine 20-50 #/hpf (0-3)
== END ==
PROVIDERS: Visit Provider Nurse Practitioner Obstetrics & Gynecology
DX: Z34.90 Encounter for supervision of normal pregnancy, unspecified, unspecified trimester (principal)
CPT/HCPCS: 81001; 87086; 87088; 87186

== ENCOUNTER → 2020-07-06 18:45 | Outpatient (CLI) | payer BC, SELFPAY ==
[2020-07-06 19:27] LABS: Basophils % 0.2 % (0.1-2.0); Eosinophils # 0.1 K/mm3 (0.0-0.4); Hematocrit 36.8 % (37.0-47.0); Hemoglobin 12.3 g/dL (12.2-16.2); Lymphocytes # 2.3 K/mm3 (0.7-4.5); Lymphocytes % 18.3 % (10-50); Mean Corpuscular HGB Conc 33.4 g/dL (31.8-35.4); Mean Corpuscular Hemoglobin 31.7 pg (27.0-31.2); Mean Corpuscular Volume 94.8 fl (81-99); Mean Platelet Volume 7.6 fl (7.4-10.4); Monocytes # 0.7 K/mm3 (0.1-1.0); Monocytes % 5.4 % (1.7-9.3); Neutrophils # 9.5 K/mm3 (1.8-7.8); Neutrophils % 75.1 % (37.0-80.0); Platelet Count 272 K/mm3 (142-424); Red Blood Count 3.88 M/mm3 (4.20-5.40); Red Cell Distribution Width 14.3 % (11.5-17.5); White Blood Count 12.7 K/mm3 (4.8-10.8)
[2020-07-06 20:26] LABS: Strep Scrn Group A (Rapid) Negative (Negative)
== END ==
PROVIDERS: PCP Nurse Practitioner Family; Visit Provider Nurse Practitioner Family
DX: Z03.818 Encounter for observation for suspected exposure to other biological agents ruled out (principal)
CPT/HCPCS: 36415; 85025; 87430; U0003

== ENCOUNTER → 2020-08-17 11:29 | Outpatient (CLI) | payer BC, SELFPAY ==
[2020-08-17 12:44] LABS: Glucose,Fasting 99 mg/dl (74-100)
[2020-08-17 13:26] LABS: Glucose 1 Hour 184 mg/dL (74-100)
== END ==
PROVIDERS: Visit Provider Nurse Practitioner Obstetrics & Gynecology
DX: Z34.90 Encounter for supervision of normal pregnancy, unspecified, unspecified trimester (principal)
CPT/HCPCS: 82951

== ENCOUNTER → 2020-08-21 08:30 | Outpatient (CLI) | payer BC, SELFPAY ==
[2020-08-21 09:26] LABS: Glucose,Fasting 104 mg/dl (74-100)
[2020-08-21 10:35] LABS: Glucose 1 Hour 251 mg/dL (74-100)
[2020-08-21 11:20] LABS: Glucose 2 Hour 159 mg/dL (74-100)
[2020-08-21 12:20] LABS: Glucose 3 Hour 75 mg/dL (74-100)
== END ==
PROVIDERS: Visit Provider Nurse Practitioner Obstetrics & Gynecology
DX: Z34.90 Encounter for supervision of normal pregnancy, unspecified, unspecified trimester (principal)
CPT/HCPCS: 36415; 82951

== ENCOUNTER → 2020-08-25 17:43 | Outpatient (CLI) | payer BC, SELFPAY ==
[2020-08-25 17:45] LABS: Microscopic, Urine URINE MICROSCOPIC (MICROSCOPIC)
[2020-08-25 18:37] LABS: Appearance,Urine TURBID (Clear); Bilirubin,Urine Negative (Negative); Blood, Urine TRACE-I (Negative); Color,Urine YELLOW (Yellow); Glucose,Urine (UA) Negative (Negative); Ketones,Urine Negative (Negative); Leukocyte Esterase,Urine Negative (Negative); Nitrate,Urine Negative (Negative); PH,Urine 6.5 (5.0-8.5); Protein,Urine Negative (Negative); Urobilinogen,Urine 0.2 EU/dl (0.2)
[2020-08-25 18:54] LABS: Bacteria,Urine 4+ /lpf; RBC,Urine Occasional #/hpf (0-3); WBC,Urine Occasional #/hpf (0-3)
== END ==
PROVIDERS: Visit Provider Nurse Practitioner Obstetrics & Gynecology
DX: O23.40 Unspecified infection of urinary tract in pregnancy, unspecified trimester (principal)
CPT/HCPCS: 81001; 87086; 87088; 87186

== ENCOUNTER → 2020-09-14 15:37 | Outpatient (CLI) | payer BC, SELFPAY ==
[2020-09-14 16:56] LABS: Basophils % 0.2 % (0.1-2.0); Eosinophils # 0.2 K/mm3 (0.0-0.4); Eosinophils % 1.3 % (0.1-12.0); Hematocrit 32.8 % (37.0-47.0); Hemoglobin 10.6 g/dL (12.2-16.2); Lymphocytes # 2.6 K/mm3 (0.7-4.5); Lymphocytes % 20.4 % (10-50); Mean Corpuscular HGB Conc 32.5 g/dL (31.8-35.4); Mean Corpuscular Hemoglobin 28.9 pg (27.0-31.2); Mean Corpuscular Volume 89.1 fl (81-99); Mean Platelet Volume 7.8 fl (7.4-10.4); Monocytes # 0.9 K/mm3 (0.1-1.0); Monocytes % 7.1 % (1.7-9.3); Neutrophils # 8.9 K/mm3 (1.8-7.8); Platelet Count 294 K/mm3 (142-424); Red Blood Count 3.68 M/mm3 (4.20-5.40); Red Cell Distribution Width 14.1 % (11.5-17.5); White Blood Count 12.5 K/mm3 (4.8-10.8)
[2020-09-14 17:10] LABS: Chloride 106 mmol/L (98-107); Potassium 3.7 mmoL/L (3.5-5.1); Sodium 134 mmol/L (136-145)
[2020-09-14 17:12] LABS: Bilirubin,Unconjugated 0.3 mg/dL (0.0-1.1); Blood Urea Nitrogen 4 mg/dl (7-17); Estimated Glomerular Filt Rate 144 ml/min (>60); GFR (African American) 174 ML/MIN (>60)
[2020-09-14 17:13] LABS: Alanine Aminotransferase 11 U/L (12-78); Albumin Level 3.4 g/dl (3.5-5.0); Alkaline Phosphatase 140 U/L (38-126); Anion Gap 10.7 mEq/L (5-15); Aspartate Amino Transferase 18 U/L (14-36); Bilirubin,Direct 0.1 mg/dl (0.0-0.4); Bilirubin,Indirect 0.3 mg/dL (0.0-0.9); Bilirubin,Total 0.4 mg/dl (0.2-1.3); Calcium 9.1 mg/dl (8.4-10.2); Carbon Dioxide 21 mmol/L (22.0-30.0); Globulin 3.4 g/dL (1.3-3.2); Glucose 95 mg/dl (74-100); Total Protein,Serum 6.8 g/dl (6.3-8.2)
== END ==
PROVIDERS: Visit Provider Nurse Practitioner Obstetrics & Gynecology
DX: O26.619 Liver and biliary tract disorders in pregnancy, unspecified trimester (principal); K83.1 Obstruction of bile duct; Z3A.34 34 weeks gestation of pregnancy
CPT/HCPCS: 36415; 80053; 80076; 85025

== ENCOUNTER → 2020-09-29 17:35 | Outpatient (CLI) | payer BC, SELFPAY | PROVIDERS: Visit Provider Nurse Practitioner Obstetrics & Gynecology | DX: N39.0 Urinary tract infection, site not specified (principal); Z34.90 Encounter for supervision of normal pregnancy, unspecified, unspecified trimester; Z3A.36 36 weeks gestation of pregnancy | CPT/HCPCS: 86403; 87086; 87088; 87186 ==

== ENCOUNTER → 2020-10-02 17:28 | Outpatient (CLI) | payer BC, SELFPAY | PROVIDERS: PCP Nurse Practitioner Obstetrics & Gynecology; Visit Provider Nurse Practitioner Obstetrics & Gynecology | DX: Z01.818 Encounter for other preprocedural examination (principal); Z20.822 Contact with and (suspected) exposure to COVID-19; Z34.90 Encounter for supervision of normal pregnancy, unspecified, unspecified trimester | CPT/HCPCS: 36415; 80048; 85025; U0003 ==

== ENCOUNTER 2020-10-04 05:31 | Inpatient (IN) | payer BC, SELFPAY ==
--- NOTE | 2020-09-29 11:14 | SUR.PREOP ---
1114- 09/29/20- left detailed msg to come in on Sat 10/02 for PCR COVID swab. To call if have any questions
[2020-10-04] VITALS (7 sets, daily range): BP systolic 114–156; BP diastolic 68–139; PULSE 77–105; RESP 18–24; TEMP 36.1–37.5; O2SAT 96–100; BMI 35.0
[2020-10-04 06:25] LABS: Microscopic, Urine URINE MICROSCOPIC (MICROSCOPIC)
[2020-10-04 06:40] LABS: Appearance,Urine CLEAR (Clear); Bilirubin,Urine Negative (Negative); Blood, Urine TRACE-I (Negative); Color,Urine YELLOW (Yellow); Glucose,Urine (UA) Negative (Negative); Ketones,Urine 2+ (Negative); Leukocyte Esterase,Urine Negative (Negative); Nitrate,Urine Negative (Negative); Protein,Urine Negative (Negative); Specific Gravity, Urine 1.025 (1.005-1.030); Urobilinogen,Urine 0.2 EU/dl (0.2)
[2020-10-04 07:08] LABS: Amphetamine/Metha Screen,Urine Negative ng/ml (<1000)
[2020-10-04 07:09] LABS: Barbiturates Screen,Urine Negative ng/ml (<200)
[2020-10-04 07:10] LABS: Benzodiazepines Screen,Urine Negative ng/ml (<200); Cannabinoid Screen,Urine Negative ng/ml (<50)
[2020-10-04 07:11] LABS: Cocaine Screen,Urine Negative ng/ml (<300)
[2020-10-04 07:12] LABS: Methadone Screen,Urine Negative ng/ml (<300); Opiate Screen,Urine Negative ng/ml (<300)
[2020-10-04 07:13] LABS: Phencyclidine Screen,Urine Negative ng/ml (<25)
--- NOTE | 2020-10-04 07:17 | P.PN_ITS ---
[facility] Anesthesia Checklist - Patient Identification Patient Identification: Arm Band - Structural Data Admitted From: Home Planned Operative Procedure/s: C/S with salpingectomy Consent for Planned Operative Procedure(s) Verified: Yes - Airway Assessment C-Spine Mobility Assessed: Yes TMJ Mobility Assessed: Yes Dentition: Good Dentition - Neurological Assessment Level of Consciousness: Awake, Alert, Appropriate, Follows Commands Hx Seizures: No Numbness or tingling in extremities: No - Anesthesia Plan Anesthesia Risk discussed: Yes Anesthesia Plan: Verified ASA Class: II Anesthesia Type: Spinal [facility] History I have reviewed the patient's past medical history: Yes *Have you ever received a pneumonia vaccine?: No *Have you received a flu vaccine this season?: No Anesthesia experience/problems:: PONV Other Surgeries: Yes: Amputation: No Fractures: No - *Social History Smoking Status: Never smoker Alcohol Intake: never Alcohol Intake Frequency:: other Substance Use Type: denies use *Occupational Status:: employed *Travel in the last 8 weeks: Inside the [place] Family Hx:: No significant family history
[2020-10-04 08:06] LABS: Cord Blood PH 7.32 (7.35-7.45)
--- NOTE | 2020-10-04 08:29 | HMH.OPNOTE ---
Date of procedure: 10/04/20 Pre-op Diagnosis:: Term , previous section, history of large for gestational age infants, suspected gestational diabetes, desire for sterilization Post-op Diagnosis:: Term , previous section, history of large infants, polyhydramnios, suspected gestational diabetes, desire for sterilization Procedure performed:: Repeat lower segment transverse section and bilateral salpingectomy Surgeon:: Kenneth Breen MD Epic Professional(s):: Deanna Bustamante STEAM BLOCKER:: Other (Jose Elias Friend) Anesthesia: spinal Estimated blood loss (mL): 600 Clinical Note:: She is a 30-year-old 5 para 2 aborta 2 who was 37 and 1 weeks gestational age. She has had a history of extremely large babies and has had 2 previous sections. She did not have a long period of time between the last section and this section. She also expressed desire for sterilization. I suspect she did have gestational diabetes as well. Operative findings:: She delivered a liveborn female child at 7:56 AM on the morning of October 04, 2020. There was copious amniotic fluid and we retrieved approximately 2 L. The baby had Apgars of 7 at 1 minute and 8 at 5 minutes. pH was 7.32. The baby weighed 10 pounds 9 ounces and was 21-1/2 inches long. Ovaries and tubes appeared normal. Operative note:: She was taken to the operating room where spinal anesthesia was found be adequate. She was prepped and draped in normal sterile fashion in the supine position with a leftward tilt. A Singh catheter was in the bladder. A Pfannenstiel skin incision was made with knife then carried through to the underlying layer of fascia with cautery. The fascia was opened in the midline with cautery and extended laterally using Parra scissors. Emily clamps were applied to the superior aspect of the fascial incision which was tented up and the underlying rectus muscles dissected off using cautery. The Emily clamps were then applied to the inferior aspect of the fascial incision which in a similar fashion was tented up and the underlying rectus muscles dissected off using cautery. The rectus muscles were then in the midline, the peritoneum identified, and entered sharply with Metzenbaum scissors. This incision was then extended superiorly and inferiorly with cautery. We had good visualization of the bladder inferiorly. We then inserted the Bossman self retractor. The bladder peritoneum was then opened in the midline and extended laterally using Metzenbaum scissors. A bladder flap was created digitally. Transverse incision was made through the uterine muscle to the amnion. This incision was then extended laterally using fingers traction. The amnion was entered sharply with knife. There was copious clear amniotic fluid. The 's head was then delivered atraumatically. This was followed by the anterior shoulder and the rest of the 's body atraumatically. The oropharynx and nasopharynx were bulb suctioned. We allowed the cord to continue to pulsate for approximately 30 seconds. The was then handed off to Dr. Bishop who assigned Apgars of 7 at 1 minute and 8 at 5 minutes. We then obtained cord blood as well as cord pH. The pH was 7.32. Using gentle traction on the cord and countertraction on the fundus I was able to easily deliver the placenta intact. It had a normal three-vessel cord. The uterus was then cleared of clots and debris . The uterine incision was then closed using running 0 Vicryl suture in a locked fashion. A second layer of the same suture was used to imbricate the first layer. The bladder peritoneum was then closed using running 2-0 Vicryl suture in a locked fashion. The gutters and cul-de-sac were then cleared of clots and debris . Once again hemostasis was assured. We then performed a bilateral salpingectomy. The distal end of the tube was grasped with my fingers and using the endoseal I cut through the mes
--- NOTE | 2020-10-04 08:34 | P.PN_ITS ---
[facility] Anesthesia Record Part I Intake, IV Amount: 2,200 Estimated blood loss (mL): 600 Urine output (mL): 100 Blood Pressure: 156/139 SaO2: 100 Pulse Rate: 82 Respiratory Rate: 23 Temperature: 97.6 F Patient is:: Awake Stable to PACU at:: 08:31
--- NOTE | 2020-10-04 08:36 | HMH.OBAPHP ---
OB - H&P: HPI Antepartum - History of Present Illness Chief complaint: Term , large for gestational age infant, desire for sterilization, History of present illness: She is a 30-year-old 5 para 2 aborta 2 at 37 and 1 weeks gestational age. She has had previous extremely large babies. She has also had a short time since her last section. She was seen in consultation at [facility] and they suggested that she has her repeat section between 37 and 38 weeks. I suspect she has gestational diabetes as well. She also expressed desire for sterilization. - History of Present Criteria for establishing EDC:: LMP confirmed by 1st trimester US care: good care Ultrasounds: normal 1st trimester US, normal mid trimester US Obstetrical complications: previous Medical complications: none - Labs Blood type: O (+) positive Rubella: immune RPR/VDRL: nonreactive GBS status: negative HBsAG: negative [facility] History I have reviewed the patient's past medical history: Yes Medical History: Denies:: Seizures *Have you ever received a pneumonia vaccine?: No *Have you received a flu vaccine this season?: No Anesthesia experience/problems:: PONV Other Surgeries: Yes: Amputation: No Fractures: No - *Social History Smoking Status: Never smoker Alcohol Intake: never Alcohol Intake Frequency:: other Substance Use Type: denies use *Occupational Status:: employed *Travel in the last 8 weeks: Inside the [place] Family Hx:: No significant family history Para: 2 Review of Systems - Review of Systems Review of systems:: pertinent systems reviewed and negative unless documented below Meds Home Medications Medication Instructions Recorded Confirmed Type prenat.vits,rtiu,yqu-yojq-tvjtl 1 tab PO DAILY 04/02/20 10/04/20 History Ferrous Sulfate 325 mg PO DAILY 10/04/20 10/04/20 History Promethazine HCl 12.5 mg PO Q4HP PRN 10/04/20 10/04/20 History Allergies Allergy/AdvReac Type Severity Reaction Status Date / Time No Known Allergies Allergy Verified 09/29/20 16:23 OB - H&P: Exam - Physical Exam Vital signs: Temp Pulse Resp BP Pulse Ox 98.4 F 105 H 18 120/72 98 10/04/20 06:00 10/04/20 06:00 10/04/20 06:00 10/04/20 06:00 10/04/20 06:00 - Constitutional no acute distress - Routine HEENT Exam Head: Present: normocephalic Eye: Present: EOMI, PERRL ENT: Present: mucous membranes moist - Routine Neck Exam Present: supple, full ROM - Routine Respiratory Exam Absent: accessory muscle use (good air entry bilaterally), respiratory distress, wheezes, crackles - Routine Cardiovascular Exam Present: RRR. Absent: murmur - Routine Abdominal Exam Present: soft, normoactive bowel sounds. Absent: tenderness, distended, guarding - Routine Rectal Exam Patient deferred: visual exam, digital exam - Routine Exam Patient deferred: external exam, groin exam, perineal exam - Routine Extremities Exam Present: full ROM. Absent: cyanosis, edema - Routine Skin Exam Present: intact. Absent: cyanosis - Routine Neurological Exam Present: alert, oriented X3 - Routine Psychiatric Exam Present: normal affect OB - Results - Labs Labs: Urine 10/04/20 Range/Units 06:00 Urine Color Yellow (Yellow) Urine Appearance Clear (Clear) Urine pH 6.0 (5.0-8.5) Ur Specific [place] 1.025 (1.005-1.030) Urine Protein Negative (Negative) Urine Glucose (UA) Negative (Negative) OB - A/P Antepartum (1) Previous section complicating , with delivery Status: Acute (2) Encounter for sterilization Status: Acute (3) Polyhydramnios, delivered, current hospitalization Status: Acute (4) Large for gestational age fetus affecting management of mother, delivered Status: Acute (5) Gestational diabetes Status: Acute - Additional Plan Planning to breastfee
--- NOTE | 2020-10-04 09:06 | SUR.PHASEI ---
Report called to Luis Du RN.
--- NOTE | 2020-10-04 09:10 | SUR.PHASEI ---
Pt taken to room 280 in OB at this time.
--- NOTE | 2020-10-04 13:11 | SUR.OPER ---
[id number]-viable infant female born at this time
--- NOTE | 2020-10-04 15:21 | P.CONPHA_ITS ---
[facility] Pharmacy VTE Monitoring - Patient Demographics Admission date: 10/04/20 Report Date: 10/04/20 Time: 15: Allergies/Adverse Reactions: Patient Allergies No Known Allergies Allergy (Verified 09/29/20 16:23) Height: 1.68 m Weight: 98.486 kg Patient Problems: Current Active Problems Previous section complicating , with delivery (Acute) Encounter for sterilization (Acute) Polyhydramnios, delivered, current hospitalization (Acute) Large for gestational age fetus affecting management of mother, delivered (Acute) Gestational diabetes (Acute) - Prophylaxis VTE Prophylaxis Ordered?: Yes Types of VTE Prophylaxis: IPCS Thigh High Location of Applied Device: Bilateral Lower Extremeties
[2020-10-04 15:31] LABS: Microscopic,Cath URINE MICROSCOPIC (MICROSCOPIC)
[2020-10-04 15:53] LABS: Appearance,Urine/Cath CLEAR (Clear); Bilirubin,Cath Negative (Negative); Blood, Urine/Cath TRACE-I (Negative); Color,Urine/Cath YELLOW (Yellow); Glucose,Urine/Cath (UA) Negative (Negative); Ketones,Urine/Cath 2+ (Negative); Leukocyte Esterase,Cath Negative (Negative); Nitrate,Cath Negative (Negative); Protein,Urine/Cath TRACE (Negative); Urobilinogen,Cath 0.2 EU/dl (0.2)
[2020-10-04 17:15] LABS: Bacteria,Urine/Cath 3+ /lpf; CA Oxalate Crystals,Ur/Cath 3+ /lpf; RBC,Urine/Cath Occasional # /hpf (0-3)
[2020-10-05 00:10] VITALS: BP 111/61; PULSE 78; RESP 18; TEMP 37.1; O2SAT 97
[2020-10-05 04:20] VITALS: BP 132/77; PULSE 84; RESP 18; TEMP 36.9; O2SAT 97
[2020-10-05 07:44] LABS: Hematocrit 28.7 % (37.0-47.0); Hemoglobin 9.6 g/dL (12.2-16.2)
--- NOTE | 2020-10-05 08:44 | P.PN_ITS ---
Internal Medicine - PN: Subj *Date: 10/05/20 *Time: 08:44 Interval history: She is 1 day from a and bilateral salpingectomy. She is doing very well. She is eating and drinking and ambulating. Her lochia is normal. Her pain is well controlled. Exam Vital signs and Labs for Last 24 Hours: Temp Pulse Resp BP Pulse Ox 98.4 F 84 18 132/77 97 10/05/20 04:20 10/05/20 04:20 10/05/20 04:20 10/05/20 04:20 10/05/20 04:20 Laboratory Results - last 24 hr 10/04/20 07:45: Urine Color Yellow, Urine Appearance Clear, Urine pH 6.0, Ur Specific [place] 1.020, Urine Protein Trace, Urine Glucose (UA) Negative, Urine Ketones 2+, Urine Blood Trace-i, Urine Nitrate Negative, Urine Bilirubin Negative, Urine Urobilinogen 0.2, Ur Leukocyte Esterase Negative, Urine RBC Occasional, Urine WBC 3-5, Ur Squamous Epith Cells 3-5, Calcium Oxalate Crystal 3+, Urine Bacteria 3+ A 10/05/20 06:55: Hgb 9.6 L, Hct 28.7 L I & O for Last 24 hours: Intake & Output 10/02/20 10/03/20 10/04/20 10/05/20 10:59 11:59 11:59 11:59 Intake Total 2200 / 2200 Balance 2200 / 2200 Weight 217 lb 2 oz - Constitutional no acute distress - *Routine HEENT Exam Head: Present: normocephalic Eye: Present: EOMI, PERRL ENT: Present: mucous membranes moist Assessment and Plan (1) Previous section complicating , with delivery Status: Acute Category: Surgical Code(s): O34.219 - Maternal care for unspecified type scar from previous delivery (2) Encounter for sterilization Status: Acute Category: Medical Code(s): Z30.2 - Encounter for sterilization (3) Polyhydramnios, delivered, current hospitalization Status: Acute Category: Medical Code(s): O40.9XX0 - Polyhydramnios, unspecified trimester, not applicable or unspecified (4) Large for gestational age fetus affecting management of mother, delivered Status: Acute Category: Medical Code(s): O36.60X0 - Maternal care for excessive growth, unspecified trimester, not applicable or unspecified (5) Gestational diabetes Status: Acute Qualifiers: Gestational diabetes mellitus control: diet-controlled Trimester: third trimester Qualified Code(s): O24.410 - Gestational diabetes mellitus in , diet controlled Category: Medical Code(s): O24.419 - Gestational diabetes mellitus in , unspecified control - Assessment and plan all Dx Assessment and Plan for all problems:: She continues to do very well this morning. She is eating and drinking and ambulating. Her pain is well controlled. We will plan to send her home in 48 hours.
[2020-10-05 10:41] VITALS: BP 114/68; PULSE 79; TEMP 36.4
--- NOTE | 2020-10-05 10:41 | P.PN_ITS ---
[facility] Anesthesia Record Part II Discharge Time: 09:05 Destination: Obstetric PACU nurse assessment reviewed?: Yes Patient Condition:: Good Anesthesia Complications:: None Swallowing reflex intact?: Yes Cyanosis?: No Blood Pressure: 114/68 Pulse Rate: 79 Temperature: 97.6 F Mental Status: Alert & Oriented Pain level:: 0 Nausea and/or vomitting:: None Intake, IV Amount: 0
--- NOTE | 2020-10-06 15:21 | HMH.ACPN2 ---
Internal Medicine - PN: Subj *Date: 10/06/20 *Time: 15:21 Interval history: She is doing well today. She is 2 days post and tubal ligation. She is eating and drinking and ambulating. She is breast-feeding. Her pain is well controlled. Exam Vital signs and Labs for Last 24 Hours: Temp Pulse Resp BP Pulse Ox 97.6 F 79 18 114/68 97 10/05/20 10:41 10/05/20 10:41 10/05/20 04:20 10/05/20 10:41 10/05/20 04:20 I & O for Last 24 hours: Intake & Output 10/04/20 10/05/20 10/06/20 10/07/20 11:59 11:59 11:59 11:59 Intake Total 2200 / 2200 0 / 0 Balance 2200 / 2200 0 / 0 Weight 217 lb 2 oz Microbiology Reports for the Last 24 Hours: Microbiology 10/04/20 07:45 Urine,Catheterized Urine Culture - Preliminary NO GROWTH AFTER 24 HOURS - Constitutional no acute distress - *Routine HEENT Exam Head: Present: normocephalic Eye: Present: EOMI, PERRL ENT: Present: mucous membranes moist Assessment and Plan (1) Previous section complicating , with delivery Status: Acute Category: Surgical Code(s): O34.219 - Maternal care for unspecified type scar from previous delivery (2) Encounter for sterilization Status: Acute Category: Medical Code(s): Z30.2 - Encounter for sterilization (3) Polyhydramnios, delivered, current hospitalization Status: Acute Category: Medical Code(s): O40.9XX0 - Polyhydramnios, unspecified trimester, not applicable or unspecified (4) Large for gestational age fetus affecting management of mother, delivered Status: Acute Category: Medical Code(s): O36.60X0 - Maternal care for excessive growth, unspecified trimester, not applicable or unspecified (5) Gestational diabetes Status: Acute Qualifiers: Gestational diabetes mellitus control: diet-controlled Trimester: third trimester Qualified Code(s): O24.410 - Gestational diabetes mellitus in , diet controlled Category: Medical Code(s): O24.419 - Gestational diabetes mellitus in , unspecified control - Assessment and plan all Dx Assessment and Plan for all problems:: She is doing very well. We will plan to send her home tomorrow.
[2020-10-07 08:00] VITALS: BP 121/66; PULSE 72; RESP 18; TEMP 36.9; O2SAT 98
--- NOTE | 2020-10-07 10:48 | HMH.OBDCSM ---
General - General Admission date:: 10/04/20 Discharge date: 10/07/20 HPI - History of Present Illness History of present illness: She is a 30-year-old 5 now para 3 aborta 2 who was 37 and 1 weeks gestational age. She had extremely large for gestational age . She had polyhydramnios and gestational diabetes that was poorly controlled. As result of that she was offered repeat lower segment transverse section at term. She also expressed desire for sterilization. Hospital Course Hospital Course: On October 04, 2020 she underwent a repeat lower segment transverse section and delivered a liveborn female child at 7:56 AM. The baby weighed 10 pounds 9 ounces and was 20-1/2 inches long. She had Apgars of 7 at 1 minute and 8 at 5 minutes. She underwent a bilateral salpingectomy at the time of her section as well. She has done well post operatively and has remained afebrile throughout her hospitalization. She is eating and drinking and ambulating. She is breast-feeding. She has O+ blood, she is rubella immune and was group B streptococcus negative. Her jacker feeder is Dr. Bishop. She is discharged home to follow-up with me in approximately 2 weeks time. She will continue with her vitamins and iron. She was given a prescription for Percocet 5/325 number 20 tablets. She was given the usual instructions with respect to limiting her activity, driving and sexual activity. Her condition on discharge is stable and improved. Rhogam Administration: Not Indicated Objective Vital signs: Temp Pulse Resp BP Pulse Ox 98.5 F 72 18 121/66 98 10/07/20 08:00 10/07/20 08:00 10/07/20 08:00 10/07/20 08:00 10/07/20 08:00 no acute distress - *Routine HEENT Exam Head: Present: normocephalic Eye: Present: EOMI, PERRL ENT: Present: mucous membranes moist DS: Diagnosis - Discharge Diagnosis (1) Previous section complicating , with delivery Status: Acute (2) Encounter for sterilization Status: Acute (3) Polyhydramnios, delivered, current hospitalization Status: Acute (4) Large for gestational age fetus affecting management of mother, delivered Status: Acute (5) Gestational diabetes Status: Acute Discharge Plan - Patient Discharge Instructions ACTIVITY: No heavy lifting DIET: continue same diet Additional Instructions: No heavy lifting, no strenuous activity. Don't lift anything heavier than your baby. Nothing in the Vagina for 6 weeks. No driving until approved by physician. Patient Instructions: Depression, Hemorrhage, DI for , DI for Pre-eclampsia, [facility] Post Discharge Instructions, Preventing the Spread of Coronavirus Discharge Instructions - Follow up Plan Follow up with: Kenneth Breen MD [Staff Physician] - Disposition: Home, Self-Senior Living Medications: Home Medications Medication Instructions Recorded Confirmed Type prenat.vits,ritu,tlr-fepe-dfunq 1 tab PO DAILY 04/02/20 10/04/20 History Ferrous Sulfate 325 mg PO DAILY 10/04/20 10/04/20 History Promethazine HCl 12.5 mg PO Q4HP PRN 10/04/20 10/04/20 History Oxycodone HCl/Acetaminophen 1 tab PO Q4-6H PRN #20 tablet 10/07/20 Rx [Percocet 5/325mg tablet] Prescriptions/Medication Reconciliation: New Oxycodone HCl/Acetaminophen [Percocet 5/325mg tablet] 1 tab PO Q4-6H PRN #20 tablet PRN Reason: Severe Pain Continued prenat.vits,ritu,iui-livz-zipjq 1 tab PO DAILY Promethazine HCl 12.5 mg PO Q4HP PRN PRN Reason: nausea and vomiting Ferrous Sulfate 325 mg PO DAILY - Problem Reconciliation Problems Reviewed?: Yes
[2020-10-07 12:00] VITALS: BP 117/65; PULSE 69; RESP 18; TEMP 36.6; O2SAT 99
== END 2020-10-07 14:45 | disposition home or self-care (01) | DRG 785 ==
PROVIDERS: Admitting Provider Nurse Practitioner Obstetrics & Gynecology; PCP Family Medicine; Visit Provider Nurse Practitioner Obstetrics & Gynecology
PROC: 10D00Z1 Extraction of Products of Conception, Low, Open Approach (ICD-10-PCS; CPT 59514; principal; 2020-10-04 07:30)
DX: O33.5XX0 Maternal care for disproportion due to unusually large fetus, not applicable or unspecified (principal); O34.211 Maternal care for low transverse scar from previous cesarean delivery; N85.8 Other specified noninflammatory disorders of uterus; Z3A.37 37 weeks gestation of pregnancy; Z37.0 Single live birth; Z30.2 Encounter for sterilization; O24.410 Gestational diabetes mellitus in pregnancy, diet controlled; O40.3XX0 Polyhydramnios, third trimester, not applicable or unspecified
CPT/HCPCS: 59514; 58700; 36415; 59025; 80305; 81001; 82800; 85014; 85018; 86850; 87086; J2405

== ENCOUNTER 2020-11-03 21:50 | Emergency (ER) | payer BC, SELFPAY ==
[2020-11-03 21:51] VITALS: BP 141/74; PULSE 118; RESP 16; TEMP 37.2; O2SAT 99; BMI 28.1
--- NOTE | 2020-11-03 22:08 | ECG_ITS ---
APPROVED REPORT Exam: Resting ECG HR:91 bpm ECG Measurements Heart Rate 91 AXES RI 136 P 60 QRSd 84 QRS 84 QT 356 T 51 QTc 437 Conclusion Normal sinus rhythm Normal ECG Electronically signed by : Rufino Scott, 11/04/2020 13:55:07
--- NOTE | 2020-11-03 22:08 | XR_ITS ---
PROCEDURE: XR CHEST AP CLINICAL HISTORY: back pain s/p Upper posterior chest pain with tachycardia COMPARISON: CT CT ANGIO CHEST from 11/03/2020 FINDINGS: The cardiomediastinal silhouette and pulmonary vascularity are within normal limits. The lungs are clear without infiltrates, suspicious nodules, or pleural effusions. There is a small calcified granuloma in the right apex. The remaining lungs are clear. No acute bony finding. IMPRESSION: No acute findings. Dictated by: Valeriy Cox MD 11/04/2020 05:58 Valeriy Cox MD in [facility] 11/04/2020 05:58
--- NOTE | 2020-11-03 22:12 | CT_ITS ---
PROCEDURE: CT ANGIO CHEST CLINCIAL INDICATION: Recent , left sided pleuritic pain, tachy COMPARISON: No exams were available for comparison TECHNIQUE: IV Contrast: 70ML Isovue 370 Axial images obtained with sagittal and coronal reformats. All CT scans at the facility use one or more dose reduction, viz: automated exposure control, ma/kV adjustment per patient size (including targeted exams where dose is matched to indication, i.e. head), or iterative reconstruction technique. FINDINGS: HEART AND MEDIASTINAL STRUCTURES: No evidence of pulmonary embolus, aortic aneurysm, or aortic dissection. There is mild prominence of the main pulmonary artery with a pulmonary artery/aortic ratio greater than 1. LUNGS AND PLEURAL SPACES: Calcified granuloma right upper lobe. 3 mm fissural nodule in the right minor fissure region. Minimal atelectatic or fibrotic change in the left lung base BONY STRUCTURES: No acute bony abnormalities apparent. UPPER ABDOMEN: Mild splenomegaly ADDITIONAL FINDINGS: No other significant abnormalities. IMPRESSION: No acute finding. Splenomegaly Dictated by: Valeriy Cox MD 11/04/2020 09:19 Valeriy Cox MD in [facility] 11/04/2020 09:19
--- NOTE | 2020-11-03 22:16 | HMH.EDGENADL ---
ED Disposition Clinical Impression: Back pain Qualifiers: Back pain location: thoracic back pain Chronicity: unspecified Back pain laterality: left Qualified Code(s): M54.6 - Pain in thoracic spine Disposition: Home, Self-Care Condition on Discharge: Good Instructions: DI for Acute Pain -- Adult Additional Instructions: You were evaluated in the Emergency Department today for back pain. Your evaluation suggests no acute abnormalities which require further intervention at this time. You should alternate Tylenol and Motrin every 4-6 hours to help control your pain. You may also take Flexeril and use a Lidocaine patch as needed. You should continue doing back exercises which could include going to physical therapy. Please follow up with your primary care physician within three days. If you do not have a primary doctor, you can call your insurance company to find one. If you do not have insurance, you can look for one on this of local clinics or go to the finance/registration department for more assistance. Return to the Emergency Department if you experience worsening back pain, incontinence, numbness/tingling, weakness, or any other concerning symptoms. Prescriptions: Cyclobenzaprine HCl [Flexeril 10mg tablet] 10 mg PO BID 7 Days #14 tab Transmission Status: P[facility] to [facility] Lidocaine [Lidocaine Pain Relief] 1 each TP BID PRN 5 Days #10 patch PRN Reason: back pain Transmission Status: Pending to [facility] Referrals: Rahul Bishop MD [Primary Care Provider] - - Critical Care Critical Care Time: No Attestation: On 11/03/20, the high probability of a clinically significant, sudden or life threatening deterioration of the following system(s) required my full and direct attention, intervention and personal management. The time I documented below is in addition to time spent performing reported procedures but includes the following listed in this critical care notation. Medical Decision Making - Adryan Inquiry Pt receiving controlled substance: No Vital Signs: 11/03/20 21:51 11/03/20 23:00 Temperature 98.9 F Temperature Source Oral Pulse Rate 83 Pulse Rate [Right] 118 H Respiratory Rate 16 Blood Pressure 116/66 Blood Pressure [Right Arm] 141/74 H Blood Pressure Mean 83 Blood Pressure Mean [Right Arm] 96 02 Sat by Pulse Oximetry 99 99 - Lab Data Lab Results 11/03/20 22:15: WBC 16.2 H, RBC 4.61, Hgb 12.6, Hct 38.0, MCV 82.5, MCH 27.3, MCHC 33.2, RDW 15.0, Plt Count 221, MPV 7.8, Neut % (Auto) 88.8 H, Lymph % (Auto) 6.4 L, Rincon % (Auto) 3.5, Eos % (Auto) 1.1, Baso % (Auto) 0.2, Neut # (Auto) 14.4 H, Lymph # (Auto) 1.1, Rincon # (Auto) 0.6, Eos # (Auto) 0.2, Baso # (Auto) 0.0, Total Counted 100, Neutrophils % (Manual) 86 H, Lymphocytes % (Manual) 12, Monocytes % (Manual) 2, Platelet Estimate Normal, Stomatocytes 1+ 11/03/20 22:15: Sodium 137, Potassium 3.1 L, Chloride 104, Carbon Dioxide 20 L, Anion Gap 16.1 H, BUN 18 H, Creatinine 1.00, Estimated Creat Clear 105, Estimated GFR 65, Est GFR ( Amer) 78, Glucose 110 H, Calcium 9.2, Total Bilirubin 0.7, AST 40 H, ALT 50, Alkaline Phosphatase 136 H, Troponin I < 0.01, Total Protein 8.4 H, Albumin 4.8, Globulin 3.6 H, Albumin/Globulin Ratio 1.3 11/03/20 22:15: PT 10.4, INR 0.94, APTT 22.7 L Result diagrams: 11/03/20 22:15 11/03/20 22:15 Orders (Tests/Meds): ED MEDICATIONS Generic Name Dose Route Start Last Admin Trade Name Freq PRN Reason Stop Dose Admin Lactated Ringer's 1,000 mls @ 999 mls/hr 11/03/20 22:15 11/03/20 22:21 Lactated Ringer's 1000 Ml Bag IV 11/03/20 23:15 999 mls/hr .Q1H1M CHRISTEN Administration Discontinued Medications Generic Name Dose Route Start Last Admin Trade Name Freq PRN Reason Stop Dose Admin Cyclobenzaprine HCl 5 mg 11/03/20 23:16 11/03/20 23:19 Cyclobenzaprine 10mg Tablet PO 11/03/20 23:17 5 mg ONCE ONE Administration Iopamidol 70 ml 11/03/20 22:41 11/03/20 22:4
[2020-11-03 22:36] LABS: Chloride 104 mmol/L (98-107); Potassium 3.1 mmoL/L (3.5-5.1); Sodium 137 mmol/L (136-145)
[2020-11-03 22:38] LABS: Basophils % 0.2 % (0.1-2.0); Blood Urea Nitrogen 18 mg/dl (7-17); Creatinine Clearance Estimated 105 mL/min (50-200); Eosinophils # 0.2 K/mm3 (0.0-0.4); Eosinophils % 1.1 % (0.1-12.0); Estimated Glomerular Filt Rate 65 ml/min (>60); GFR (African American) 78 ML/MIN (>60); Hemoglobin 12.6 g/dL (12.2-16.2); Lymphocytes # 1.1 K/mm3 (0.7-4.5); Lymphocytes % 6.4 % (10-50); Mean Corpuscular HGB Conc 33.2 g/dL (31.8-35.4); Mean Corpuscular Hemoglobin 27.3 pg (27.0-31.2); Mean Corpuscular Volume 82.5 fl (81-99); Mean Platelet Volume 7.8 fl (7.4-10.4); Monocytes # 0.6 K/mm3 (0.1-1.0); Monocytes % 3.5 % (1.7-9.3); Neutrophils # 14.4 K/mm3 (1.8-7.8); Neutrophils % 88.8 % (37.0-80.0); Platelet Count 221 K/mm3 (142-424); Red Blood Count 4.61 M/mm3 (4.20-5.40); White Blood Count 16.2 K/mm3 (4.8-10.8)
[2020-11-03 22:39] LABS: Alanine Aminotransferase 50 U/L (12-78); Albumin Level 4.8 g/dl (3.5-5.0); Albumin/Globulin Ratio 1.3 (1.1-1.8); Alkaline Phosphatase 136 U/L (38-126); Anion Gap 16.1 mEq/L (5-15); Aspartate Amino Transferase 40 U/L (14-36); Bilirubin,Total 0.7 mg/dl (0.2-1.3); Calcium 9.2 mg/dl (8.4-10.2); Carbon Dioxide 20 mmol/L (22.0-30.0); Globulin 3.6 g/dL (1.3-3.2); Glucose 110 mg/dl (74-100); Total Protein,Serum 8.4 g/dl (6.3-8.2)
[2020-11-03 22:50] LABS: MANUAL DIFFERENTIAL MANUAL DIFFERENTIAL (MANUAL DIFF)
[2020-11-03 22:54] LABS: Troponin I < 0.01 ng/ml (0.00-0.034)
[2020-11-03 23:00] VITALS: BP 116/66; PULSE 83; O2SAT 99
[2020-11-03 23:05] LABS: Activated Partial Thrombo Time 22.7 seconds (22.8-30.6); INR 0.94 (0.9-1.1); Prothrombin Time 10.4 seconds (10.1-12.5)
[2020-11-03 23:44] LABS: Lymphocytes % 12 % (10-50); Monocytes % 2 % (2-9); Neutrophils % 86 % (42-76); Platelet Estimate Normal; Stomatocytes 1+; Total Cells Counted 100
[2020-11-04 00:52] VITALS: BP 112/75; PULSE 75; RESP 16; TEMP 37.2; O2SAT 98
== END 2020-11-04 00:54 | disposition home or self-care (01) ==
PROVIDERS: Emergency Provider Emergency Medicine; PCP Family Medicine
DX: M54.6 Pain in thoracic spine (principal); R11.0 Nausea; M25.512 Pain in left shoulder; R53.81 Other malaise
CPT/HCPCS: 71045; 71275; 80053; 84484; 85007; 85025; 85610; 85730; 93005; 96365; 96375; 99282; J2405; Q9967

== ENCOUNTER → 2020-11-23 17:01 | Outpatient (CLI) | payer BC, SELFPAY | PROVIDERS: Visit Provider Nurse Practitioner Obstetrics & Gynecology | DX: N39.0 Urinary tract infection, site not specified (principal) | CPT/HCPCS: 87086; 87088; 87186 ==

== ENCOUNTER → 2021-06-17 18:36 | Outpatient (CLI) | payer BC, SELFPAY | PROVIDERS: PCP Family Medicine; Visit Provider Nurse Practitioner | DX: Z20.822 Contact with and (suspected) exposure to COVID-19 (principal) | CPT/HCPCS: C9803; U0003; U0005 ==

== ENCOUNTER 2021-08-13 20:33 | Emergency (ER) | payer BC, SELFPAY ==
[2021-08-13 20:38] VITALS: BP 127/83; PULSE 74; RESP 18; TEMP 36.8; O2SAT 98; BMI 25.8
--- NOTE | 2021-08-13 20:49 | HMH.EDUTC ---
[facility] [place] Disposition Clinical Impression: Exposure to COVID-19 virus, Nausea Disposition: Home, Self-Care Condition on Discharge: Good Instructions: DI for COVID-19 (Suspected or Confirmed ), DI for Nausea -- Adult Additional Instructions: covid swab was sent to lab, call tomorrow for results. self isolate until test results are known to be negative No sign of a bacterial infection. Likely viral. Viruses can take 7-14 days to run their course. Nasal saline and bulb syringe or nose Viktoriya to remove nasal drainage to help with nasal congestion. Hard to eat, drink, sleep with nasal congestion so important to keep this cleaned out. Monitor temp. Tylenol or Motrin as needed for pain or fever Encourage fluids, water, Gatorade, Powerade, Pedialyte if /toddler/child Warm salt water gargles Warm fluids Sore throat lozenges Sleep elevated Humidifier/vaporizer Follow-up immediately for new or worsening symptoms or no noticeable improvement over the next 48-72 hours. Monitor temperature. Seek treatment if fever develops. Follow-up immediately if new or worse symptoms worsen or no noticeable improvement over 48 hours. Increase fluids such as water, Gatorade, Powerade, juice or Pedialyte No food is okay as long as you are drinking. Once ready to eat start bland such as bananas, rice, applesauce, toast. Contagious until no diarrhea, vomiting, fever times 48 hours without medication Avoid antidiarrheals unless told otherwise. Best to let the virus run its course. Follow-up immediately for new or worsening symptoms or no noticeable improvement over the next 48 hours. Prescriptions: Ondansetron [Zofran 4mg ODT] 4 mg PO TIDP PRN 3 Days #12 tab PRN Reason: Nausea Prescription Printed Referrals: Rahul Bishop MD [Primary Care Provider] - Time of Disposition: 20:53 Medical Decision Making - Adryan Inquiry Pt receiving controlled substance: No Vital Signs: 08/13/21 20:38 Temperature 98.2 F Temperature Source Oral Pulse Rate [Left] 74 Respiratory Rate 18 Blood Pressure [Right Arm] 127/83 Blood Pressure Mean [Right Arm] 97 02 Sat by Pulse Oximetry 98 Orders (Tests/Meds): ORDERS Category Date Time Status Covid-19 Nasal PCR ([facility]) Routine Lab 08/13/21 20:[address] [facility] [place] HPI - General Chief complaint: [facility] Stated complaint: covid test Time Seen by Provider: 08/13/21 20:49 Mode of Arrival: Ambulatory Source of Information: Patient Description of Symptoms (Recalled from Triage Doc. by RN): pt c/o a cough and nausea HEENT Symptoms (Recalled from RN notes): No Resp Symptoms (Recalled from RN notes): Yes Skin Symptoms (Recalled from RN notes): No MS Symptoms (Recalled from RN notes): No Functional Status (Recalled from RN notes): wnl - History of Present Illness Provider Complaint: 31 yr old female presents for covid test was exposed on . pt states nausea,sinus congestion and cough,denies fever - Related Data Previous Rx's Medication Instructions Recorded nitrofurantoin 100 mg PO Q12H 5 Days #10 cap 06/03/21 monohydrate/macrocrystals 100 mg capsule phenazopyridine 100 mg tablet 100 mg PO TID PRN 3 Days #9 tab 06/03/21 Ondansetron [Zofran 4mg ODT] 4 mg PO TIDP PRN 3 Days #12 tab 08/13/21 Allergies Allergy/AdvReac Type Severity Reaction Status Date / Time No Known Allergies Allergy Verified 11/23/20 15:59 - Worker's Comp Is this a Worker's Comp case?: No [facility] History - Hepatitis A Screen Drug use history?: No High risk sexual behaviors?: No History of sexually transmitted infection?: No Currently employed?: No Childcare worker?: No Do you have indoor plumbing?: Yes Do you have electricity?: Yes Attestation statement:: This patient has been screened for Hepatitis A risk factors. I have reviewed the patient's past medical history: Yes Medical History: Denies:: Seizures Other Surgeries: Yes: Amputation: No Fractures: No - Soci
[2021-08-13 20:54] VITALS: BP 127/83; PULSE 74; RESP 18; TEMP 36.8
== END 2021-08-13 20:57 | disposition home or self-care (01) ==
PROVIDERS: Emergency Provider Nurse Practitioner Family; PCP Family Medicine
DX: U07.1 COVID-19 (principal); R05.1 Acute cough
CPT/HCPCS: 99202; C9803; G0463; U0003; U0005

== ENCOUNTER → 2022-02-14 15:01 | Outpatient (CLI) | payer BC, SELFPAY | PROVIDERS: PCP Nurse Practitioner Family; Visit Provider Nurse Practitioner Family | DX: Z20.822 Contact with and (suspected) exposure to COVID-19 (principal) | CPT/HCPCS: C9803; U0003; U0005 ==

== ENCOUNTER → 2022-04-27 12:45 | Outpatient (CLI) | payer BC, SELFPAY ==
[2022-04-27 13:04] LABS: Coronavirus 19, PCR Not Detected (NotDetected); Influenza A, PCR Not Detected (NotDetected); Influenza B, PCR Not Detected (NotDetected)
[2022-04-27 13:13] LABS: Basophils # 0.1 K/mm3 (0-0.2); Basophils % 0.6 % (0.1-2.0); Eosinophils # 0.1 K/mm3 (0.0-0.4); Eosinophils % 0.9 % (0.1-12.0); Hematocrit 35.1 % (37.0-47.0); Lymphocytes # 1.5 K/mm3 (0.7-4.5); Lymphocytes % 13.7 % (10-50); Mean Corpuscular HGB Conc 34.2 g/dL (31.8-35.4); Mean Corpuscular Hemoglobin 31.1 pg (27.0-31.2); Mean Corpuscular Volume 91.1 fl (81-99); Mean Platelet Volume 7.6 fl (7.4-10.4); Monocytes # 0.5 K/mm3 (0.1-1.0); Neutrophils # 8.4 K/mm3 (1.8-7.8); Neutrophils % 79.8 % (37.0-80.0); Platelet Count 294 K/mm3 (142-424); Red Blood Count 3.86 M/mm3 (4.20-5.40); Red Cell Distribution Width 12.9 % (11.5-17.5); White Blood Count 10.6 K/mm3 (4.8-10.8)
[2022-04-27 13:20] LABS: Strep Scrn Group A (Rapid) Negative (Negative)
== END ==
PROVIDERS: PCP Family Medicine; Visit Provider Physician Assistant
DX: Z20.822 Contact with and (suspected) exposure to COVID-19 (principal)
CPT/HCPCS: 36415; 85025; 87430; C9803; U0003; U0005

== ENCOUNTER → 2022-05-18 15:06 | Outpatient (CLI) | payer BC, SELFPAY | PROVIDERS: PCP Family Medicine; Visit Provider Family Medicine | DX: J09.X2 Influenza due to identified novel influenza A virus with other respiratory manifestations (principal) | CPT/HCPCS: 87275; 87276; C9803; U0003; U0005 ==

== ENCOUNTER 2022-07-20 15:07 | Emergency (ER) | payer BC, SELFPAY ==
[2022-07-20 15:20] VITALS: BP 128/70; PULSE 83; RESP 18; TEMP 36.8; O2SAT 98; BMI 27.4
--- NOTE | 2022-07-20 15:51 | EXP.UTC ---
Discharge Plan Disposition Patient Disposition: Home, Self-Care Condition: Good Prescriptions Prescriptions: New ondansetron 4 mg tablet,disintegrating 4 mg PO Q8H PRN (Reason: nausea and vomiting) Qty: 10 0RF No Action triamcinolone acetonide 0.1 % ointment 1 applic topical BID 14 Days Qty: 80 2RF Referrals Follow up/Referrals: Rahul Bishop MD [Primary Care Provider] - See instructions Activity Restrictions/Add. Instructions Additional Instructions/Restrictions: *Monitor Temp, Over the counter Motrin or Tylenol as directed/as needed Tylenol every 4 hours and Motrin every 6 hours (as long as your family doctor has told you that you can take it) for fever or pain. and straight to ER if unable to lower temp less than 101.0 after medication given *Warm salt water gargles may help to soothe the throat *Throat Lozenges? *Warm fluids like tea with honey may help to soothe the throat? *Sleep elevated *Humidifier/Vaporizer *Flonase 2 sprays in each nostril daily but be aware that it may take 2-3 days before you notice improvement *Bromfed may cause drowsiness. Know how it effects you (your child) before driving, caring for small child, or sending your child to school. Not other antihistamines/allergy medications while taking bromfed Your throat swab was sent for culture. Those results are typically sent to your primary care. Be sure to follow up in 2-3 days with your family doctor/primary care physician if no improvement so they can review those result and treat if necessary. If you don?t have a primary care doctor, I recommend you get one but in the mean time, you will have to return to a walk in clinic Follow up IMMEDIATELY for new or worsening symptoms or no Noticeable improvement over the next 48-72 hours. 911 for difficulty breathing or swallowing Clinical Impressions Clinical Impression: Viral syndrome Instructions Patient Instructions: Nausea and Vomiting-Adult, Sore Throat Discharge ED Provider: Veronica Rob [facility] [place] General Stated complaint: Headache, vomitting Mode of Arrival: Ambulatory Source of Information: Patient Limitations: No Limitations Time Seen by Provider: 07/20/22 15:51 Description of Symptoms (Recalled from Triage Doc. by RN): PATIENT C/O NAUSEA, HEADACHE, AND VOMITING X 2 DAYS HEENT Symptoms (Recalled from RN notes): Yes Resp Symptoms (Recalled from RN notes): No Skin Symptoms (Recalled from RN notes): No MS Symptoms (Recalled from RN notes): No Functional Status (Recalled from RN notes): WNL History of Present Illness Provider Complaint: Patient states that she hasnt felt well for a couple of days States that she has been having sore throat, headache, nasal congestion N/V States that son is having similar symptoms so today when they was both still not feeling well they came in Related Data Previous Rx's Medication Instructions Recorded triamcinolone acetonide 0.1 % 1 applic topical BID 2 weeks #80 03/23/22 topical ointment grams ondansetron 4 mg disintegrating 4 mg PO Q8H PRN nausea and 07/20/22 tablet vomiting #10 tabs Allergies Allergy/AdvReac Type Severity Reaction Status Date / Time No Known Allergies Allergy Verified 05/09/22 08:39 Worker's Comp Is this a Worker's Comp case?: No [facility] Disclaimer: The information contained in this section may have been updated after the patient was seen, as this information can be updated by other users. Surgical History History of bilateral tubal ligation History of section, classical Hx of section Social History (Updated 07/20/22 @ 15:48 by Renee Tompkins RN) Smoking Status: Never smoker alcohol intake: current substance use type: denies use current occupational status: employed Travel in the last 8 weeks: None ROS Obtained: Yes All systems reviewed & no additional complaints except as documen
[2022-07-20 16:13] LABS: UTC Strep Screen (Rapid) Negative (Negative)
[2022-07-20 16:27] VITALS: BP 128/70; PULSE 83; RESP 18; TEMP 36.8; O2SAT 98
== END 2022-07-20 16:36 | disposition home or self-care (01) ==
PROVIDERS: Emergency Provider Nurse Practitioner; PCP Family Medicine
DX: R51.9 Headache, unspecified (principal); R11.10 Vomiting, unspecified; B34.9 Viral infection, unspecified
CPT/HCPCS: 87880; 99212; G0463

== ENCOUNTER → 2022-09-22 17:15 | Outpatient (CLI) | payer BC, SELFPAY ==
[2022-09-22 17:38] LABS: Coronavirus 19, PCR Not Detected (NotDetected); Influenza A, PCR Not Detected (NotDetected); Influenza B, PCR Not Detected (NotDetected)
[2022-09-22 17:42] LABS: Basophils # 0.1 K/mm3 (0-0.2); Basophils % 1.2 % (0.1-2.0); Eosinophils # 0.1 K/mm3 (0.0-0.4); Eosinophils % 0.9 % (0.1-12.0); Hematocrit 39.6 % (37.0-47.0); Hemoglobin 13.3 g/dL (12.2-16.2); Lymphocytes # 1.2 K/mm3 (0.7-4.5); Lymphocytes % 11.3 % (10-50); Mean Corpuscular HGB Conc 33.6 g/dL (31.8-35.4); Mean Corpuscular Hemoglobin 30.3 pg (27.0-31.2); Mean Corpuscular Volume 90.3 fl (81-99); Mean Platelet Volume 7.9 fl (7.4-10.4); Monocytes # 0.5 K/mm3 (0.1-1.0); Monocytes % 4.9 % (1.7-9.3); Neutrophils # 8.4 K/mm3 (1.8-7.8); Neutrophils % 81.6 % (37.0-80.0); Platelet Count 272 K/mm3 (142-424); Red Blood Count 4.38 M/mm3 (4.20-5.40); Red Cell Distribution Width 12.9 % (11.5-17.5); White Blood Count 10.3 K/mm3 (4.8-10.8)
== END ==
PROVIDERS: PCP Family Medicine; Visit Provider Physician Assistant
DX: Z20.822 Contact with and (suspected) exposure to COVID-19 (principal)
CPT/HCPCS: 36415; 85025; C9803; U0003; U0005

== ENCOUNTER → 2022-12-01 08:08 | Outpatient (CLI) | payer BC, SELFPAY ==
[2022-12-01 10:15] LABS: Glucose,Fasting 90 mg/dl (74-100)
[2022-12-01 10:31] LABS: Glucose 1 Hour 101 mg/dL (74-100)
== END ==
PROVIDERS: PCP Family Medicine; Visit Provider Obstetrics & Gynecology
DX: Z86.32 Personal history of gestational diabetes (principal); L29.2 Pruritus vulvae
CPT/HCPCS: 36415; 82951

== ENCOUNTER 2022-12-28 14:32 | Emergency (ER) | payer BC, SELFPAY ==
[2022-12-28 14:33] VITALS: BP 148/76; PULSE 77; RESP 16; TEMP 36.6; O2SAT 99; BMI 28.1
--- NOTE | 2022-12-28 14:38 | EXP.UTC ---
Discharge Plan Disposition Patient Disposition: Home, Self-Care Condition: Good Prescriptions Prescriptions: New triamcinolone acetonide 0.1 % cream 1 applic topical BID PRN (Reason: itching) Qty: 30 0RF diphenhydramine HCl [Diphenhydramine HCl] 25 mg capsule 25 mg PO Q6HP PRN (Reason: Itching) Qty: 30 0RF methylprednisolone 4 mg Tablets,Dose Pack 4 mg PO DIRECTED Qty: 21 0RF No Action cefdinir 300 mg capsule 300 mg PO BID fluconazole 150 mg tablet 150 mg PO Q3D Qty: 3 0RF Rx Instructions: take 1 tablet every 72 hours amoxicillin-pot clavulanate 875-125 mg tablet 1 tab PO BID 10 Days Qty: 20 0RF Referrals Follow up/Referrals: Rahul Bishop MD [Primary Care Provider] - See instructions Activity Restrictions/Add. Instructions Additional Instructions/Restrictions: Try to identify and avoid contact with the offending substance. Don't start the oral steroids until tomorrow. The diphenhydramine (benedryl) will make you drowsy, so don't drive or operate heavy machinery after taking it. Don't put the topical steroids (triamcinolone) on your face or your groin. Follow up with your regular doctor. GO TO THE ER FOR ANY WORSENING SYMPTOMS OR CONCERNS Clinical Impressions Clinical Impression: Contact dermatitis Discharge ED Provider: Darrell Palmer [facility] [place] General Stated complaint: Possible poison giorgi rash Time Seen by Provider: 12/28/22 14:38 History of Present Illness Provider Complaint: She states that she was exposed to poison giorgi several days ago. She now has an itchy rash on her face, arms, upper legs and abdomen. Related Data Home Medications Medication Instructions Recorded Confirmed cefdinir 300 mg capsule 300 mg PO BID 11/30/22 11/30/22 Previous Rx's Medication Instructions Recorded fluconazole 150 mg tablet 150 mg PO Q3D #3 tabs 11/30/22 amoxicillin 875 mg-potassium 1 tab PO BID 10 days #20 tabs 12/05/22 clavulanate 125 mg tablet diphenhydramine HCl 25 mg capsule 25 mg PO Q6HP PRN Itching #30 caps 12/28/22 methylprednisolone 4 mg tablets in 4 mg PO DIRECTED #21 tabs 06/08/23 a dose pack triamcinolone acetonide 0.1 % 1 applic topical BID PRN itching 12/28/22 topical cream #30 grams Allergies Allergy/AdvReac Type Severity Reaction Status Date / Time No Known Allergies Allergy Verified 11/30/22 10:48 [facility] Disclaimer: The information contained in this section may have been updated after the patient was seen, as this information can be updated by other users. Medical History Candidiasis of vulva and vagina History of gestational diabetes Recurrent UTI Vulvar pruritus Surgical History History of bilateral tubal ligation Hx of section Social History Smoking Status: Never smoker alcohol intake: current substance use type: denies use current occupational status: employed Travel in the last 8 weeks: None ROS Obtained: Yes All systems reviewed & no additional complaints except as documented Constitutional Constitutional: Denies chills and Denies fever(s) Eyes Eyes: Denies eye discharge ENT Ears, Nose, Mouth, and Throat: Denies dizziness, Denies otalgia and Denies sore throat Cardiovascular Cardiovascular: Denies chest pain Respiratory Respiratory: Denies shortness of breath, Denies chest congestion, Denies cough, Denies stridor and Denies wheezing Gastrointestinal Gastrointestingal: Denies nausea or vomiting Musculoskeletal Musculoskeletal: Reports system reviewed and no additional complaints, except as documented and Denies arthralgias Integumentary/Breasts Skin/Breast: Reports rash Neurologic Neurologic: Denies dizziness and Denies paresthesias Allergic/Immunologic Allergic/Immunologic: Denies wheezing Physical Exam General Gene
[2022-12-28 15:16] VITALS: BP 148/76; PULSE 77; RESP 16; TEMP 36.6; O2SAT 99
== END 2022-12-28 15:19 | disposition home or self-care (01) ==
PROVIDERS: Emergency Provider Nurse Practitioner Family; PCP Family Medicine
DX: L25.5 Unspecified contact dermatitis due to plants, except food (principal); W60.XXXA Contact with nonvenomous plant thorns and spines and sharp leaves, initial encounter
CPT/HCPCS: 96372; 99212; 99214; G0463

== ENCOUNTER → 2023-02-28 19:24 | Outpatient (CLI) | payer BC, SELFPAY ==
[2023-02-28 19:51] LABS: Influenza A, PCR Not Detected (NotDetected); Influenza B, PCR Not Detected (NotDetected)
[2023-02-28 19:56] LABS: Basophils % 0.5 % (0.1-2.0); Eosinophils # 0.2 K/mm3 (0.0-0.4); Eosinophils % 3.5 % (0.1-12.0); Hematocrit 38.8 % (37.0-47.0); Hemoglobin 12.8 g/dL (12.2-16.2); Lymphocytes # 1.6 K/mm3 (0.7-4.5); Lymphocytes % 28.4 % (10-50); Mean Corpuscular HGB Conc 32.9 g/dL (31.8-35.4); Mean Corpuscular Hemoglobin 30.2 pg (27.0-31.2); Mean Corpuscular Volume 91.8 fl (81-99); Monocytes # 0.5 K/mm3 (0.1-1.0); Monocytes % 8.9 % (1.7-9.3); Neutrophils # 3.2 K/mm3 (1.8-7.8); Neutrophils % 58.7 % (37.0-80.0); Platelet Count 284 K/mm3 (142-424); Red Blood Count 4.22 M/mm3 (4.20-5.40); Red Cell Distribution Width 12.7 % (11.5-17.5); White Blood Count 5.5 K/mm3 (4.8-10.8)
[2023-02-28 20:32] LABS: Strep Scrn Group A (Rapid) Negative (Negative)
[2023-02-28 20:35] LABS: Coronavirus 19, PCR Detected (NotDetected)
== END ==
PROVIDERS: Physician Assistant; PCP Family Medicine; Visit Provider Nurse Practitioner Family
DX: U07.1 COVID-19 (principal)
CPT/HCPCS: 36415; 85025; 87430; 87636